=== PATIENT | male | born 1950 | race Caucasian/White ===

== ENCOUNTER 2017-03-20 09:23 | Inpatient (IN) | payer MEDICARE, BC ==
[~2017-03-20 09:23] MED LIST: Acetaminophen/oxyCODONE 325-5 MG Tab PO PRN; Bisacodyl 5 MG Tab PO PRN; Cyclobenzaprine 10 MG Tab PO PRN; Ketorolac 15 MG/ML SDV IVPUSH PRN; Lactated Ringers 1,000 ML IV SCH; Lidocaine 1%/Sod Bicarbonate in NS 8.4% 1 ML Syringe IV PRN; Magnesium Hydroxide 400 MG/5 ML Susp 30 ML Cup PO PRN; Morphine 2 MG/ML Syringe IVPUSH PRN; Morphine 8 MG, EPINEPHrine 0.3 MG, Cefuroxime 750 MG, Ketorolac 30 MG, Sodium Chloride ... ONE; Naloxone 0.4 MG/ML SDV IVPUSH PRN; Ondansetron 4 MG/2 ML SDV IVPUSH PRN; Sennosides 8.6 MG Tab PO PRN; Sodium Chloride 0.9% 10 ML Syringe FLUSH PRN; diphenhydrAMINE 50 MG/ML SDV IVPUSH PRN; oxyCODONE 5 MG Tab PO PRN
[2017-03-20] MEDS ORDERED: ceFAZolin 1 GM Vial ONE ×2 (10:09→10:34)
[2017-03-20] MEDS ORDERED: fentaNYL 100 MCG/2 ML SDV ONE (10:10)
[2017-03-20] MEDS ORDERED: Propofol 200 MG/20 ML SDV ONE (10:10)
[2017-03-20] MEDS ORDERED: Midazolam 1 MG/ML 2 ML SDV ONE (10:10)
--- NOTE | 2017-03-20 10:15 | PCM.PREANE ---
Preanesthetic Assessment - Anesthesia/Transfusion/Family Hx Anesthesia History: Prior Anesthesia Without Reaction Family History of Anesthesia Reaction: No Transfusion History: No Prior Transfusion(s) - Review of Systems General: No Symptoms Pulmonary: No Symptoms Cardiovascular: No Symptoms Gastrointestinal: No Symptoms Neurological: No Symptoms Other: Reports: Diabetes (check this AM @ 0730 was 190), Thyroid Problems ( hypothyroid) - Physical Assessment NPO Status Date: 03/19/17 NPO Status Time: 00:00 Pulse: 79 O2 Sat by Pulse Oximetry: 99 Respiratory Rate: 18 Blood Pressure: 146/70 Temperature: 37.2 C Vital Signs: Last Vital Signs Temp 37.2 C 03/20/17 09:30 Pulse 79 03/20/17 09:30 Resp 18 03/20/17 09:30 BP 146/70 H 03/20/17 09:30 Pulse Ox 99 03/20/17 09:30 Height: 1.83 m Weight: 93.259 kg ASA Class: 3 Mental Status: Alert & Oriented x3 Dentition: Reports: Dentures (top), Missing Tooth/Teeth, Caries Thyro-Mental Finger Breadths: 3 Mouth Opening Finger Breadths: 3 ROM/Head Extension: Full Lungs: Clear to Auscultation, Normal Respiratory Effort Cardiovascular: Regular Rate, Regular Rhythm, No Murmurs - Lab Values: Laboratory Last Values MRSA (PCR) Negative 03/07/17 14:38 - Imaging/EKG Impressions: On chart Sinus Rhythm - Allergies Allergies/Adverse Reactions: Allergies Allergy/AdvReac Type Severity Reaction Status Date / Time No Known Allergies Allergy Verified 01/08/16 07:21 - Anesthesia Plan Pre-Op Medication Ordered: Beta Peter Beta Peter: Metoprolol Med Last Dose Date: 03/20/17 Med Last Dose Time: 07:30 - Acknowledgements Anesthesia Type Planned: Spinal Pt an Appropriate Candidate for the Planned Anesthesia: Yes Alternatives and Risks of Anesthesia Discussed w Pt/Guardian: Yes Pt/Guardian Understands and Agrees with Anesthesia Plan: Yes PreAnesthesia Questionnaire HEENT History: Reports: Impaired Vision Other HEENT History: has upper denture, wears glasses Cardiovascular History: Reports: CAD, High Cholesterol, Hypertension, MS, Stents Respiratory History: Reports: None Gastrointestinal History: Reports: None Genitourinary History: Reports: None 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 Neurological History: Reports: None Psychiatric History: Reports: None Endocrine/Metabolic History: Reports: Diabetes, Type II Hematologic History: Reports: None Immunologic History: Reports: None Oncologic (Cancer) History: Reports: None Dermatologic History: Reports: None - Past Surgical History Head Surgeries/Procedures: Reports: None Cardiovascular Surgical History: Reports: None Respiratory Surgical History: Reports: None GI Surgical History: Reports: Appendectomy, Cholecystectomy Female Surgical History: Reports: None Male Surgical History: Reports: None Endocrine Surgical History: Reports: None Neurological Surgical History: Reports: None Musculoskeletal Surgical History: Reports: Arthroscopic Knee Dermatological Surgical History: Reports: None - SUBSTANCE USE Smoking Status *Q: Former Smoker Tobacco Use Within Last Twelve Months: No Second Hand Smoke Exposure: No Days Per Week of Alcohol Use: 0 Number of Drinks Per Day: 0 Total Drinks Per Week: 0 Recreational Drug Use History: No - HOME MEDS Home Medications: Home Meds Aspirin 325 mg PO DAILY 03/17/17 [History] Hydrochlorothiazide 12.5 mg PO DAILY 03/17/17 [History] Levothyroxine 125 mcg PO DAILY 03/17/17 [History] Metoprolol Succinate 25 mg PO DAILY 03/17/17 [History] Nitroglycerin [Nitrostat] 0.4 mg SL Q5M PRN 03/17/17 [History] Rosuvastatin Calcium 10 mg PO MOWEFR 03/17/17 [History] Valsartan [Valsartan] 160 mg PO DAILY 03/17/17 [History] amLODIPine [Norvasc] 10 mg PO DAILY 03/17/17 [History] glipiZIDE [Glucotrol] 10 mg PO DAILY 03/17/17 [History] metFORMIN HCl [Metformin HCl ER] 100 mg PO BID 03/17/17 [History] - CURRENT (IN HOUSE) MEDS Current Meds: Current Medications Aspirin (Ecotrin) 325 mg PO BID [facility] Bisacodyl (Dulcolax) 5 mg PO DAILY PRN PRN Reason: Constipation Cyclobenzaprine HCl (Flexeril) 10 mg PO TID PRN PRN Reason: Spasms Diphenhydramine HCl (Benadryl) 25 mg IVPUSH Q4H PRN PRN Reason: Nausea Docusate Sodium (Colace) 100 mg PO BID [facility] Famotidine (Pepcid) 20 mg PO Q12H [facility] Lactated Ringer's (Ringers, Lactated) 1,000 mls @ 125 mls/hr IV ASDIRECTED [facility] Cefazolin Sodium/Dextrose 2 gm (/ Premix) 50 mls @ 100 mls/hr IV Q8H [facility] Stop: 03/21/17 10:29 Ketorolac Tromethamine (Toradol) 15 mg IVPUSH Q8H PRN PRN Reason: Pain Lidocaine/Sodium Bicarbonate (Buffered Lidocaine 1% In Ns 8.4%) 0.25 ml IV ONETIME PRN PRN Reason: Prior to IV Start Magnesium Hydroxide (Milk Of Magnesia) 30 ml PO BID PRN PRN Reason: Constipation Morphine Sulfate (Morphine) 2 mg IVPUSH Q2H PRN PRN Reason: Breakthrough Pain Naloxone HCl (Narcan) 0.1 mg IVPUSH Q5M PRN PRN Reason: Oversedation Ondansetron HCl (Zofran) 4 mg IVPUSH Q6H PRN PRN Reason: Nausea/Vomiting Oxycodone HCl (Oxycodone) 5 mg PO Q6H PRN PRN Reason: Pain Oxycodone/Acetaminophen (Percocet 325-5 Mg) 1 - 2 tab PO Q4H PRN PRN Reason: Pain Senna (Senna) 8.6 mg PO BID PRN PRN Reason: Constipation Sodium Chloride (Saline Flush) 10 ml FLUSH ASDIRECTED PRN PRN Reason: Keep Vein Open Discontinued Medications Cefazolin Sodium (Ancef) Confirm Administered Dose 2 gm .ROUTE .STK-MED ONE Stop: 03/20/17 10:10 Morphine Sulfate 8 mg/Epinephrine HCl 0.3 mg/Cefuroxime Sodium 750 mg/Ketorolac Tromethamine 30 mg/Sodium Chloride 27.9 ml 0 mg .XX ONETIME ONE Stop: 03/20/17 06:42 Fentanyl (Sublimaze) Confirm Administered Dose 100 mcg .ROUTE .STK-MED ONE Stop: 03/20/17 10:11 Midazolam HCl (Versed 1 Mg/Ml) Confirm Administered Dose 2 mg .ROUTE .STK-MED ONE Stop: 03/20/17 10:11 Propofol (Diprivan 20 Ml) Confirm Administered Dose 400 mg .ROUTE .STK-MED ONE Stop: 03/20/17 10:11
[2017-03-20] MEDS ORDERED: Iodine/Sodium Iodide 2% Tincture 30 ML Bottle ONE (10:34)
[2017-03-20] MEDS ORDERED: Vancomycin 1 GM SDV ONE (10:34)
[2017-03-20] MEDS ORDERED: Bupivacaine 0.25% 30 ML SDV ONE (10:35)
[2017-03-20] MEDS ORDERED: Morphine PF 10 MG/10 ML SDV ONE (11:05)
[2017-03-20] MEDS ORDERED: Phenylephrine/Normal Saline 100 MCG/ML 10 ML Syringe ONE (12:28)
[2017-03-20] MEDS ORDERED: Lactated Ringers 1,000 ML ONE ×2 (13:00)
[2017-03-20] MEDS ORDERED: ePHEDrine 50 MG/ML SDV ONE (13:01)
[2017-03-20] MEDS ORDERED: Nitroglycerin 0.4 MG Tab.SL SL PRN (13:17)
--- NOTE | 2017-03-20 13:25 | PCM.POSTAN ---
POST ANESTHESIA ASSESSMENT - MENTAL STATUS Mental Status: Alert, Oriented - VITAL SIGNS Pulse Rate: 73 SaO2: 100 Resp Rate: 16 Blood Pressure: 98/59 Temperature: 98.1 C - RESPIRATORY Respiratory Status: Respiratory Rate WNL, Airway Patent, O2 Saturation Stable, Supplemental Oxygen - CARDIOVASCULAR CV Status: Pulse Rate WNL, Blood Pressure Stable - GASTROINTESTINAL GI Status: No Symptoms - PAIN Pain Score: 0 - POST OP HYDRATION Hydration Status: Adequate & Stable
[2017-03-20] MEDS ORDERED: HYDROmorphone 0.5 MG/0.5 ML Syringe IVPUSH PRN (13:26)
[2017-03-20] MEDS ORDERED: fentaNYL 100 MCG/2 ML SDV IVPUSH PRN (13:26)
[2017-03-20] MEDS ORDERED: Ondansetron 4 MG/2 ML SDV IVPUSH PRN (13:26)
[2017-03-20] MEDS ORDERED: Rosuvastatin 10 MG Tab PO SCH (13:30)
--- NOTE | 2017-03-20 17:26 | PCM.CONS ---
H&P History of Present Illness - General Date of Service: 03/20/17 Admit Problem/Dx: Admission Diagnosis/Problem Admission Diagnosis/Problem Osteoarthritis of knee Source of Information: Patient, Old Records, Provider, RN, Other (Surgical notes ) History Limitations: Reports: No Limitations - History of Present Illness Initial Comments - Free Text/Narative: Clay Coronado is a 66 yo male patient of Dr. Zhu who is post-operative day 0 of cancels left TKA. Once surgical incision was made, bone was noted to be black in color. As a result, left knee bone marrow biopsy, cultures and specimen were obtained. Hospital medicine was consulted for post-operative medical care. At this time he is resting comfortably in bed. Pain is controlled. He denies any chest pain, shortness of breath, palpitations, nausea , or vomiting. He carries a history of: HLD, hypothyroidism, CAD, HTN, AR with stent placement, and type II DM. He had a previous DVT with hip surgery. He is a former smoker. He is a full code. Has primary care provider is Dr. Lin at [facility]. Left Knee Pain Score (Numeric/FACES): 0 - Related Data Allergies/Adverse Reactions: Allergies Allergy/AdvReac Type Severity Reaction Status Date / Time No Known Allergies Allergy Verified 03/20/17 10:13 Home Medications: Home Meds Aspirin 325 mg PO DAILY 03/17/17 [History] Hydrochlorothiazide 12.5 mg PO DAILY 03/17/17 [History] Levothyroxine 125 mcg PO DAILY 03/17/17 [History] Metoprolol Succinate 25 mg PO DAILY 03/17/17 [History] Nitroglycerin [Nitrostat] 0.4 mg SL Q5M PRN 03/17/17 [History] Rosuvastatin Calcium 10 mg PO MOWEFR 03/17/17 [History] amLODIPine [Norvasc] 10 mg PO DAILY 03/17/17 [History] glipiZIDE [Glucotrol] 10 mg PO DAILY 03/17/17 [History] metFORMIN HCl [Metformin HCl ER] 100 mg PO BID 03/17/17 [History] Past Medical History HEENT History: Reports: Impaired Vision Other HEENT History: has upper denture, wears glasses Cardiovascular History: Reports: CAD, High Cholesterol, Hypertension, AR, Stents Respiratory History: Reports: None Gastrointestinal History: Reports: None Genitourinary History: Reports: None 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 Musculoskeletal History: Reports: Arthritis Neurological History: Reports: None Psychiatric History: Reports: None Endocrine/Metabolic History: Reports: Diabetes, Type II, Hypothyroidism Hematologic History: Reports: None Immunologic History: Reports: None Oncologic (Cancer) History: Reports: None Dermatologic History: Reports: None - Infectious Disease History Infectious Disease History: Reports: None - Past Surgical History Head Surgeries/Procedures: Reports: None HEENT Surgical History: Reports: None Cardiovascular Surgical History: Reports: Carotid Stents Respiratory Surgical History: Reports: None GI Surgical History: Reports: Appendectomy, Cholecystectomy Male Surgical History: Reports: None Endocrine Surgical History: Reports: None Neurological Surgical History: Reports: None Musculoskeletal Surgical History: Reports: Arthroscopic Knee Dermatological Surgical History: Reports: None Social & Family History - Family History Family Medical History: Noncontributory - Tobacco Use Smoking Status *Q: Former Smoker Years of Tobacco use: 15 Used Tobacco, but Quit: Yes Month Tobacco Last Used: quit 30 years ago Second Hand Smoke Exposure: No - Caffeine Use Caffeine Use: Reports: Coffee - Alcohol Use Days Per Week of Alcohol Use: 0 Number of Drinks Per Day: 0 Total Drinks Per Week: 0 - Recreational Drug Use Recreational Drug Use: No H&P Review of Systems - Review of Systems: Review Of Systems: See Below General: Reports: No Symptoms. Denies: Fever, Chills, Malaise, Weakness, Fatigue HEENT: Reports: No Symptoms. Denies: Ear Pain, Eye Pain, Sinus Congestion, Vertigo Pulmonary: Reports: No Symptoms. Denies: Shortness of Breath, Wheezing, Pleuritic Chest Pain Cardiovascular: Reports: No Symptoms. Denies: Chest Pain, Palpitations, Dyspnea on Exertion, Edema, Lightheadedness Gastrointestinal: Reports: No Symptoms. Denies: Abdominal Pain, Constipation, Diarrhea, Distension, Nausea, Vomiting Genitourinary: Reports: No Symptoms. Denies: Dysuria, Frequency, Burning, Pain , Urgency Musculoskeletal: Reports: No Symptoms. Denies: Neck Pain, Shoulder Pain, Arm Pain, Back Pain, Hand Pain, Leg Pain, Foot Pain, Joint Pain Skin: Reports: No Symptoms Psychiatric: Reports: No Symptoms Neurological: Reports: No Symptoms. Denies: Headache, Numbness, Tingling, Trouble Speaking, Weakness Hematologic/Lymphatic: Reports: No Symptoms Immunologic: Reports: No Symptoms Exam - Exam Exam: See Below - Vital Signs Vital Signs: Last Vital Signs Temp 98.1 F 03/20/17 14:45 Pulse 73 03/20/17 13:25 Resp 15 03/20/17 15:00 BP 134/68 03/20/17 15:00 Pulse Ox 99 03/20/17 15:00 Weight: 205 lb 9.6 oz - Exam Quality Assessment: Urinary Catheter, DVT Prophylaxis General: Alert, Oriented, Cooperative. No: Mild Distress HEENT: Conjunctiva Clear, EACs Clear, EOMI, Hearing Intact, Mucosa Moist & [place] , Nares Patent, Normal Nasal Septum, Posterior Pharynx Clear, PERRLA Neck: Supple, Trachea Midline. No: JVD, Thyromegaly Lungs: Clear to Auscultation, Normal Respiratory Effort Cardiovascular: Regular Rate, Regular Rhythm GI/Abdominal Exam: Normal Bowel Sounds, Soft, Non-Tender, No Organomegaly, No Distention, No Abnormal Bruit, No Mass, Pelvis Stable (Male) Exam: Deferred Rectal (Males) Exam: Deferred Back Exam: Normal Inspection, Full Range of Motion Extremities: No Pedal Edema, Normal Capillary Refill, Other (Matthew bandage in place on left leg. Bandages dry and intact. Cooling device place.) Peripheral Pulses: 2+: Radial (L), Radial (R), 3+: Posterior Tibial (L), Posterior Tibial (R), Dorsalis Pedis (L), Dorsalis Pedis (R) Skin: Warm, Dry, Intact Neurological: Cranial Nerves Intact (Grossly) Neuro Extensive - Mental Status: Alert, Oriented x3, Normal Mood/Affect, Normal Cognition, Memory Intact Neuro Extensive - Motor, Sensory, Reflexes: CN II-XII Intact (Grossly) Psychiatric: Alert, Normal Affect, Normal Mood - Patient Data Lab Results Last 24 hrs: Laboratory Results - last 24 hr 03/20/17 Range/Units 16:52 POC Glucose 167 H (80-115) mg/dL Consult PN Assessment/Plan POD#: 0 Procedures: Procedures CULTURE OTHR SPECIMN AEROBIC (12/06/13) HT MUSCLE IMAGE SPECT MULT (01/08/16) (1) Presence of surgical incision SNOMED Code(s): 848415296 Code(s): Z78.9 - OTHER SPECIFIED HEALTH STATUS Priority: High Current Visit: Yes (2) History of bone marrow biopsy SNOMED Code(s): 606107995 Code(s): Z98.890 - OTHER SPECIFIED POSTPROCEDURAL STATES Priority: High Current Visit: Yes (3) Osteoarthritis SNOMED Code(s): 619634747 Code(s): M19.90 - UNSPECIFIED OSTEOARTHRITIS, UNSPECIFIED SITE Priority: High Current Visit: Yes Qualifiers: Osteoarthritis location: knee Osteoarthritis type: primary Laterality: left Qualified Code(s): M17.12 - Unilateral primary osteoarthritis, left knee (4) Hypothyroidism SNOMED Code(s): 76770957 Code(s): E03.9 - HYPOTHYROIDISM, UNSPECIFIED Current Visit: No Qualifiers: Hypothyroidism type: unspecified Qualified Code(s): E03.9 - Hypothyroidism , unspecified (5) Type 2 diabetes mellitus SNOMED Code(s): 64211359 Code(s): E11.9 - TYPE 2 DIABETES MELLITUS WITHOUT COMPLICATIONS Priority: Medium Current Visit: Yes Qualifiers: Diabetes mellitus complication status: with unspecified complications Diabetes mellitus skilled nursing insulin use: without buttermaker helper use Qualified Code( s): E11.8 - Type 2 diabetes mellitus with unspecified complications (6) HLD (hyperlipidemia) SNOMED Code(s): 36864679 Code(s): E78.5 - HYPERLIPIDEMIA, UNSPECIFIED Priority: Low Current Visit : No Qualifiers: Hyperlipidemia type: unspecified Qualified Code(s): E78.5 - Hyperlipidemia , unspecified (7) HTN (hypertension) SNOMED Code(s): 13574829 Code(s): I10 - ESSENTIAL (PRIMARY) HYPERTENSION Priority: Low Current Visit: No Qualifiers: Hypertension type: unspecified Qualified Code(s): I10 - Essential (primary ) hypertension (8) 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 -Six (6) inch incision present in patients left knee -Bone marrow biopsy, cultures, and specimen were obtained during surgery -DVT prophylaxis and pain management per primary care team -PT/OT -IS/RT -Monitor oxygen saturation -Titrate oxygen as needed -Vital signs stable -Pre-operative Hgb was 13.8 Osteoarthritis of left knee -Pain management per primary care team Chronic: Hypothyroidism CAD - stable AR with stent placement - stable HLD HTN - stable Type II DM - A1C 6.0; Blood glucose checks as ordered. Continue home meds. Sliding scale insulin PRN. Plan: SW/CM for discharge planning GI prophylaxis Home medications as indicated Other orders as listed above Routine AM labs He is a full code. His PCP is Dr. Lin at [facility] here in [place] Thank you for allowing us to participate in the care of this patient!! Requesting Provider: Dr. Zhu Date Consult Requested: 03/20/17 Reason for Consult: Post-operative medical management Patient History Reviewed: Yes Admission H&P Reviewed: Yes
[2017-03-20] MEDS: ceFAZolin 2 GM in Premix Bag 1 BAG IV SCH (17:41)
[2017-03-20] MEDS ORDERED: 50% Dextrose in Water 50 ML Syringe IVPUSH PRN (17:41)
[2017-03-20] MEDS: metFORMIN 500 MG Tab PO SCH (21:27)
[2017-03-20] MEDS: Famotidine 20 MG Tab PO SCH (21:27)
[2017-03-20] MEDS: Docusate Sodium 100 MG Cap PO SCH (21:27)
[2017-03-20] MEDS: Insulin Aspart 100 Units/ML 3 ML Pen SUBCUT SCH (22:56)
[2017-03-21] MEDS: ceFAZolin 2 GM in Premix Bag 1 BAG IV SCH ×2 (02:04→10:42)
--- NOTE | 2017-03-21 08:11 | PCM48HPAN ---
Post Anesthesia Note - EVALUATION WITHIN 48HRS OF ANESTHETIC Vital Signs in Normal Range: Yes Patient Participated in Evaluation: Yes Respiratory Function Stable: Yes Airway Patent: Yes Cardiovascular Function Stable: Yes Hydration Status Stable: Yes Pain Control Satisfactory: Yes Nausea and Vomiting Control Satisfactory: Yes Mental Status Recovered: Yes
[2017-03-21] MEDS: Insulin Aspart 100 Units/ML 3 ML Pen SUBCUT SCH ×2 (08:55→11:53)
[2017-03-21] MEDS: Docusate Sodium 100 MG Cap PO SCH (08:56)
[2017-03-21] MEDS: Famotidine 20 MG Tab PO SCH (08:57)
[2017-03-21] MEDS: metFORMIN 500 MG Tab PO SCH (08:57)
[2017-03-21] MEDS ORDERED: Metoprolol Succinate 25 MG Tab.ER PO SCH (09:00)
[2017-03-21] MEDS ORDERED: Levothyroxine 125 MCG Tab PO SCH (09:00)
[2017-03-21] MEDS ORDERED: amLODIPine 10 MG Tab PO SCH (09:00)
[2017-03-21] MEDS ORDERED: Aspirin 325 MG Tab.EC PO SCH (09:00)
[2017-03-21] MEDS ORDERED: Hydrochlorothiazide 12.5 MG Cap PO SCH (09:00)
--- NOTE | 2017-03-21 10:24 | PCM.CONSN ---
- General Info Date of Service: 03/21/17 Admission Dx/Problem (Free Text): Admission Diagnosis/Problem Admission Diagnosis/Problem Osteoarthritis of knee Clay is a 66yo male scheduled for TKA yesterday with Dr. Zhu. During surgery was found to have discolored, black bone. Biopsies were obtained and no hardware was put in. He has worked with therapies today, did very well. Pain is minimal and controlled. He is voiding, appetite is good. Plans for DC today with follow up with Ortho and PCP. Functional Status: Reports: Pain Controlled, Tolerating Diet, Ambulating, Urinating, Incentive Spirometry. Denies: New Symptoms - Review of Systems General: Reports: No Symptoms HEENT: Reports: No Symptoms Pulmonary: Reports: No Symptoms Cardiovascular: Reports: No Symptoms Gastrointestinal: Reports: No Symptoms Genitourinary: Reports: No Symptoms Musculoskeletal: Reports: Leg Pain (minimal) Skin: Reports: No Symptoms Neurological: Reports: No Symptoms Psychiatric: Reports: No Symptoms - Patient Data Vitals - Most Recent: Last Vital Signs Temp 98.2 F 03/21/17 04:00 Pulse 76 03/21/17 08:56 Resp 03/21/17 07:00 BP 139/69 03/21/17 08:57 Pulse Ox 96 03/21/17 04:00 Weight - Most Recent: 211 lb 11.2 oz I&O - Last 24 Hours: Intake & Output 03/20/17 03/21/17 03/21/17 22:59 06:59 14:59 Intake Total 930 1150 Output Total 200 300 Balance 730 850 Lab Results Last 24 Hours: Laboratory Results - last 24 hr 03/20/17 03/20/17 03/21/17 Range/Units 16:52 22:19 05:40 WBC 5.53 (4.23-9.07) K/mm3 RBC 4.03 L (4.63-6.08) M/mm3 Hgb 12.0 L (13.7-17.5) gm/L Hct 35.1 L (40.1-51.0) % MCV 87.1 (79.0-92.2) fl MCH 29.8 (25.7-32.2) pg MCHC 34.2 (32.2-35.5) g/dl RDW Std Deviation 37.6 (35.1-43.9) fL Plt Count 138 L (163-337) K/mm3 MPV 11.7 (9.4-12.3) fl Sodium (136-145) mEq/L Potassium (3.5-5.1) mEq/L Chloride (98-107) mEq/L Carbon Dioxide (21-32) mEq/L Anion Gap (5-15) BUN (7-18) mg/dL Creatinine (0.7-1.3) mg/dL Est Cr Clr Drug Dosing mL/min Estimated GFR (MDRD) (>60) mL/min BUN/Creatinine Ratio (14-18) Glucose (80-115) mg/dL POC Glucose 167 H 159 H (80-115) mg/dL Calcium (8.5-10.1) mg/dL Total Bilirubin (0.2-1.0) mg/dL AST (15-37) U/L ALT (16-63) U/L Alkaline Phosphatase (46-116) U/L Total Protein (6.4-8.2) g/dl Albumin (3.4-5.0) g/dl Globulin gm/dL Albumin/Globulin Ratio (1-2) 03/21/17 03/21/17 Range/Units 05:40 06:30 WBC (4.23-9.07) K/mm3 RBC (4.63-6.08) M/mm3 Hgb (13.7-17.5) gm/L Hct (40.1-51.0) % MCV (79.0-92.2) fl MCH (25.7-32.2) pg MCHC (32.2-35.5) g/dl RDW Std Deviation (35.1-43.9) fL Plt Count (163-337) K/mm3 MPV (9.4-12.3) fl Sodium 135 L (136-145) mEq/L Potassium 4.3 (3.5-5.1) mEq/L Chloride 102 (98-107) mEq/L Carbon Dioxide 24 (21-32) mEq/L Anion Gap 13.3 (5-15) BUN 23 H (7-18) mg/dL Creatinine 1.4 H (0.7-1.3) mg/dL Est Cr Clr Drug Dosing 56.97 mL/min Estimated GFR (MDRD) 51 (>60) mL/min BUN/Creatinine Ratio 16.4 (14-18) Glucose 182 H (80-115) mg/dL POC Glucose 173 H (80-115) mg/dL Calcium 8.6 (8.5-10.1) mg/dL Total Bilirubin 0.6 (0.2-1.0) mg/dL AST 16 (15-37) U/L ALT 19 (16-63) U/L Alkaline Phosphatase 63 (46-116) U/L Total Protein 5.8 L (6.4-8.2) g/dl Albumin 3.2 L (3.4-5.0) g/dl Globulin 2.6 gm/dL Albumin/Globulin Ratio 1.2 (1-2) Andrew Results Last 24 Hours: Microbiology 03/20/17 12:44 Gram Stain - Final Other - Knee, Left Med Orders - Current: Current Medications Amlodipine Besylate (Norvasc) 10 mg PO DAILY [facility] Last Admin: 03/21/17 08:57 Dose: 10 mg Aspirin (Ecotrin) 325 mg PO BID [facility] Last Admin: 03/21/17 08:56 Dose: 325 mg Bisacodyl (Dulcolax) 5 mg PO DAILY PRN PRN Reason: Constipation Cyclobenzaprine HCl (Flexeril) 10 mg PO TID PRN PRN Reason: Spasms Dextrose/Water (Dextrose 50% In Water) 50 ml IVPUSH ASDIRECTED PRN PRN Reason: Hypoglycemia Diphenhydramine HCl (Benadryl) 25 mg IVPUSH Q4H PRN PRN Reason: Nausea Docusate Sodium (Colace) 100 mg PO BID [facility] Last Admin: 03/21/17 08:56 Dose: 100 mg Famotidine (Pepcid) 20 mg PO Q12H [facility] Last Admin: 03/21/17 08:57 Dose: 20 mg Glipizide (Glucotrol) 10 mg PO DAILY [facility] Last Admin: 03/21/17 08:56 Dose: 10 mg Hydrochlorothiazide (Hydrochlorothiazide) 12.5 mg PO DAILY [facility] Last Admin: 03/21/17 08:56 Dose: 12.5 mg Cefazolin Sodium/Dextrose 2 gm (/ Premix) 50 mls @ 100 mls/hr IV Q8H [facility] Stop: 03/21/17 10:29 Last Admin: 03/21/17 02:04 Dose: 100 mls/hr Insulin Aspart (Novolog) 0 unit SUBCUT QIDACANDBED [facility] PRN Reason: Protocol Last Admin: 03/21/17 08:55 Dose: 1 units Ketorolac Tromethamine (Toradol) 15 mg IVPUSH Q8H PRN PRN Reason: Pain Last Admin: 03/21/17 05:13 Dose: 15 mg Levothyroxine Sodium (Levothyroxine) 125 mcg PO DAILY [facility] Last Admin: 03/21/17 08:57 Dose: 125 mcg Magnesium Hydroxide (Milk Of Magnesia) 30 ml PO BID PRN PRN Reason: Constipation Metformin HCl (Glucophage) 1,000 mg PO BID [facility] Last Admin: 03/21/17 08:57 Dose: 1,000 mg Metoprolol Succinate (Toprol Xl) 25 mg PO DAILY [facility] Last Admin: 03/21/17 08:56 Dose: 25 mg Morphine Sulfate (Morphine) 2 mg IVPUSH Q2H PRN PRN Reason: Breakthrough Pain Naloxone HCl (Narcan) 0.1 mg IVPUSH Q5M PRN PRN Reason: Oversedation Nitroglycerin (Nitrostat) 0.4 mg SL Q5M PRN PRN Reason: Chest Pain Ondansetron HCl (Zofran) 4 mg IVPUSH Q6H PRN PRN Reason: Nausea/Vomiting Oxycodone/Acetaminophen (Percocet 325-5 Mg) 1 - 2 tab PO Q4H PRN PRN Reason: Pain Rosuvastatin Calcium (Crestor) 10 mg PO MOWEFR [facility] Last Admin: 03/20/17 17:41 Dose: 10 mg Senna (Senna) 8.6 mg PO BID PRN PRN Reason: Constipation Sodium Chloride (Saline Flush) 10 ml FLUSH ASDIRECTED PRN PRN Reason: Keep Vein Open Discontinued Medications Bupivacaine HCl (Marcaine 0.25%) Confirm Administered Dose 30 ml .ROUTE .STK- MED ONE Stop: 03/20/17 10:36 Last Admin: 03/20/17 12:38 Dose: 30 ml Cefazolin Sodium (Ancef) Confirm Administered Dose 2 gm .ROUTE .STK-MED ONE Stop: 03/20/17 10:10 Last Admin: 03/20/17 12:31 Dose: 2 gm Cefazolin Sodium (Ancef) Confirm Administered Dose 2 gm .ROUTE .STK-MED ONE Stop: 03/20/17 10:35 Morphine Sulfate 8 mg/Epinephrine HCl 0.3 mg/Cefuroxime Sodium 750 mg/Ketorolac Tromethamine 30 mg/Sodium Chloride 27.9 ml 0 mg .XX ONETIME ONE Stop: 03/20/17 06:42 Last Admin: 03/20/17 12:37 Dose: 788.3 mg Ephedrine Sulfate (Ephedrine Sulfate) Confirm Administered Dose 50 mg .ROUTE .STK-MED ONE Stop: 03/20/17 13:02 Fentanyl (Sublimaze) Confirm Administered Dose 100 mcg .ROUTE .STK-MED ONE Stop: 03/20/17 10:11 Fentanyl (Sublimaze) 50 mcg IVPUSH Q5M PRN PRN Reason: pain Stop: 03/20/17 18:00 Hydromorphone HCl (Dilaudid) 0.5 mg IVPUSH Q15M PRN PRN Reason: Pain (severe 7-10) Stop: 03/20/17 18:00 Lactated Ringer's (Ringers, Lactated) 1,000 mls @ 125 mls/hr IV ASDIRECTED [facility] Last Admin: 03/20/17 09:50 Dose: 125 mls/hr Lactated Ringer's (Ringers, Lactated) Confirm Administered Dose 1,000 mls @ as directed .ROUTE .STK-MED ONE Stop: 03/20/17 13:01 Lactated Ringer's (Ringers, Lactated) Confirm Administered Dose 1,000 mls @ as directed .ROUTE .STK-MED ONE Stop: 03/20/17 13:01 Iodine (Iodine 2% Mild Tincture) Confirm Administered Dose 30 ml .ROUTE .STK- MED ONE Stop: 03/20/17 10:35 Last Admin: 03/20/17 12:26 Dose: 18 ml Lidocaine/Sodium Bicarbonate (Buffered Lidocaine 1% In Ns 8.4%) 0.25 ml IV ONETIME PRN PRN Reason: Prior to IV Start Last Admin: 03/20/17 09:54 Dose: 0.25 ml Midazolam HCl (Versed 1 Mg/Ml) Confirm Administered Dose 2 mg .ROUTE .STK-MED ONE Stop: 03/20/17 10:11 Morphine Sulfate (Duramorph Pf) 10 mg .ROUTE .STK-MED ONE Stop: 03/20/17 11:06 Ondansetron HCl (Zofran) 4 mg IVPUSH ONETIME PRN PRN Reason: Nausea/Vomiting Stop: 03/20/17 18:00 Oxycodone HCl (Oxycodone) 5 mg PO Q6H PRN PRN Reason: Pain Phenylephrine HCl (Phenylephrine In Ns 100 Mcg/Ml) Confirm Administered Dose 1 mg .ROUTE .STK-MED ONE Stop: 03/20/17 12:29 Propofol (Diprivan 20 Ml) Confirm Administered Dose 400 mg .ROUTE .STK-MED ONE Stop: 03/20/17 10:11 Tranexamic Acid (Cyklokapron) Confirm Administered Dose 1,000 mg .ROUTE .STK- MED ONE Stop: 03/20/17 10:35 Last Admin: 03/20/17 12:40 Dose: 1,000 mg Vancomycin HCl (Vancomycin) Confirm Administered Dose 1 gm .ROUTE .STK-MED ONE Stop: 03/20/17 10:35 Last Admin: 03/20/17 12:39 Dose: 1 gm - Exam Quality Assessment: DVT Prophylaxis General: Alert, Oriented, Cooperative, No Acute Distress HEENT: Pupils Equal, EOMI, Mucous Membr. Moist/[place] Neck: Supple Lungs: Clear to Auscultation, Normal Respiratory Effort Cardiovascular: Regular Rate, Regular Rhythm GI/Abdominal Exam: Normal Bowel Sounds, Soft, Non-Tender (Male) Exam: Deferred Back Exam: Normal Inspection Extremities: Other (Teds bilat, ice to lt knee) Peripheral Pulses: 2+: Dorsalis Pedis (L), Dorsalis Pedis (R) Skin: Warm, Other (dark skin color, slight ashen appearance. ) Neurological: No New Focal Deficit Psy/Mental Status: Alert, Normal Affect, Normal Mood Consult PN Assessment/Plan POD#: 1 Procedures: Procedures CULTURE OTHR SPECIMN AEROBIC (12/06/13) HT MUSCLE IMAGE SPECT MULT (01/08/16) (1) Presence of surgical incision SNOMED Code(s): 327656068 Code(s): Z78.9 - OTHER SPECIFIED HEALTH STATUS Priority: High Current Visit: Yes (2) History of bone marrow biopsy SNOMED Code(s): 436551211 Code(s): Z98.890 - OTHER SPECIFIED POSTPROCEDURAL STATES Priority: High Current Visit: Yes (3) Osteoarthritis SNOMED Code(s): 774791580 Code(s): M19.90 - UNSPECIFIED OSTEOARTHRITIS, UNSPECIFIED SITE Priority: High Current Visit: Yes Qualifiers: Osteoarthritis location: knee Osteoarthritis type: primary Laterality: left Qualified Code(s): M17.12 - Unilateral primary osteoarthritis, left knee (4) 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 SNOMED Code(s): 53104442 Code(s): I25.10 - ATHSCL HEART DISEASE OF [place] CORONARY ARTERY W/O ANG PCTRS; I25.2 - OLD MYOCARDIAL INFARCTION Priority: Medium Current Visit: Yes (5) Type 2 diabetes mellitus SNOMED Code(s): 60672099 Code(s): E11.9 - TYPE 2 DIABETES MELLITUS WITHOUT COMPLICATIONS Priority: Medium Current Visit: Yes Qualifiers: Diabetes mellitus complication status: with unspecified complications 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: without intermodal 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 driver use Qualified Code( s): E11.8 - Type 2 diabetes mellitus with unspecified complications (6) HLD (hyperlipidemia) SNOMED Code(s): 35883013 Code(s): E78.5 - HYPERLIPIDEMIA, UNSPECIFIED Priority: Low Current Visit : No Qualifiers: Hyperlipidemia type: unspecified Qualified Code(s): E78.5 - Hyperlipidemia , unspecified (7) HTN (hypertension) SNOMED Code(s): 13896104 Code(s): I10 - ESSENTIAL (PRIMARY) HYPERTENSION Priority: Low Current Visit: No Qualifiers: Hypertension type: unspecified Qualified Code(s): I10 - Essential (primary ) hypertension (8) Hypothyroidism SNOMED Code(s): 02654145 Code(s): E03.9 - HYPOTHYROIDISM, UNSPECIFIED Priority: Low Current Visit : No Qualifiers: Hypothyroidism type: unspecified Qualified Code(s): E03.9 - Hypothyroidism , unspecified Problem List Initiated/Reviewed/Updated: Yes My Orders Last 24 Hours: My Active Orders 03/20/17 15:07 Patient Status [ADT] Routine Plan: I/P: S/P incision to left knee for planned TKA- TKA not completed due to bone abnormality "black bone". -Biopsy obtained in surgery per Dr. Zhu- awaiting results -Follow up with PCP to have further workup of black bone, ? minocycline use or other metabolic or metastatic process. -PT/OT- doing well and discharged from PT this morning -Pain management and DVT prophylax per Ortho Chronic: CAD/Hx AMI/stent- stable HTN- controlled HLD DM- A1C 6.0 Other: CM/SW for assist with DC planning- OK from medical/Hospitalist standpoint for DC home today GI prophylax Patient is Full Code status. Dr. Lin is PCP at [facility] in [place].
--- NOTE | 2017-03-23 16:05 | PCM.SURGPN ---
- General Info Date of Service: 03/21/17 POD#: 1 Functional Status: Reports: Pain Controlled, Tolerating Diet, Ambulating, Urinating, Incentive Spirometry - Review of Systems Musculoskeletal: Reports: Other (The pt reported his pain is controlled. He feels prepared for discharge to home.) - Patient Data Vitals - Most Recent: Last Vital Signs Temp 98.4 F 03/21/17 11:21 Pulse 74 03/21/17 11:21 Resp 16 03/21/17 14:00 BP 129/90 03/21/17 11:21 Pulse Ox 98 03/21/17 14:00 Weight - Most Recent: 211 lb 11.2 oz Andrew Results Last 24 Hrs: Microbiology 03/20/17 12:44 Gram Stain - Final Other - Knee, Left Anaerobic Culture - Preliminary NO GROWTH AFTER 2 DAYS Med Orders - Current: Current Medications Discontinued Medications Amlodipine Besylate (Norvasc) 10 mg PO DAILY [facility] Last Admin: 03/21/17 08:57 Dose: 10 mg Aspirin (Ecotrin) 325 mg PO BID [facility] Last Admin: 03/21/17 08:56 Dose: 325 mg Bisacodyl (Dulcolax) 5 mg PO DAILY PRN PRN Reason: Constipation Bupivacaine HCl (Marcaine 0.25%) Confirm Administered Dose 30 ml .ROUTE .STK- MED ONE Stop: 03/20/17 10:36 Last Admin: 03/20/17 12:38 Dose: 30 ml Cefazolin Sodium (Ancef) Confirm Administered Dose 2 gm .ROUTE .STK-MED ONE Stop: 03/20/17 10:10 Last Admin: 03/20/17 12:31 Dose: 2 gm Cefazolin Sodium (Ancef) Confirm Administered Dose 2 gm .ROUTE .STK-MED ONE Stop: 03/20/17 10:35 Morphine Sulfate 8 mg/Epinephrine HCl 0.3 mg/Cefuroxime Sodium 750 mg/Ketorolac Tromethamine 30 mg/Sodium Chloride 27.9 ml 0 mg .XX ONETIME ONE Stop: 03/20/17 06:42 Last Admin: 03/20/17 12:37 Dose: 788.3 mg Cyclobenzaprine HCl (Flexeril) 10 mg PO TID PRN PRN Reason: Spasms Dextrose/Water (Dextrose 50% In Water) 50 ml IVPUSH ASDIRECTED PRN PRN Reason: Hypoglycemia Diphenhydramine HCl (Benadryl) 25 mg IVPUSH Q4H PRN PRN Reason: Nausea Docusate Sodium (Colace) 100 mg PO BID [facility] Last Admin: 03/21/17 08:56 Dose: 100 mg Ephedrine Sulfate (Ephedrine Sulfate) Confirm Administered Dose 50 [address] .[address] [facility] Stop: 03/20/17 13:02 Famotidine (Pepcid) 20 mg PO Q12H [facility] Last Admin: 03/21/17 08:57 Dose: 20 mg Fentanyl (Sublimaze) Confirm Administered Dose [address] mcg [address] .[facility] Stop: 03/20/17 10:11 Fentanyl (Sublimaze) 50 mcg IVPUSH Q5M PRN PRN Reason: pain Stop: 03/20/17 18:00 Glipizide (Glucotrol) 10 mg PO DAILY [facility] Last Admin: 03/21/17 08:56 Dose: 10 mg Hydrochlorothiazide (Hydrochlorothiazide) 12.5 mg PO DAILY [facility] Last Admin: 03/21/17 08:56 Dose: 12.5 mg Hydromorphone HCl (Dilaudid) 0.5 mg IVPUSH Q15M PRN PRN Reason: Pain (severe 7-10) Stop: 03/20/17 18:00 Lactated Ringer's (Ringers, Lactated) 1,000 mls @ 125 mls/hr IV ASDIRECTED [facility] Last Admin: 03/20/17 09:50 Dose: 125 mls/hr Cefazolin Sodium/Dextrose 2 gm (/ Premix) 50 mls @ 100 mls/hr IV Q8H [facility] Stop: 03/21/17 10:29 Last Admin: 03/21/17 10:42 Dose: 100 mls/hr Lactated Ringer's (Ringers, Lactated) Confirm Administered Dose 1,000 mls @ as directed .ROUTE .[facility] Stop: 03/20/17 13:01 Lactated Ringer's (Ringers, Lactated) Confirm Administered Dose 1,000 mls @ as directed .ROUTE .[facility] Stop: 03/20/17 13:01 Insulin Aspart (Novolog) 0 unit SUBCUT QIDACANDBED [facility] PRN Reason: Protocol Last Admin: 03/21/17 11:53 Dose: Not Given Iodine (Iodine 2% Mild Tincture) Confirm Administered Dose 30 ml .ROUTE .STK- MED ONE Stop: 03/20/17 10:35 Last Admin: 03/20/17 12:26 Dose: 18 ml Ketorolac Tromethamine (Toradol) 15 mg IVPUSH Q8H PRN PRN Reason: Pain Last Admin: 03/21/17 05:13 Dose: 15 mg Levothyroxine Sodium (Levothyroxine) 125 mcg PO DAILY [facility] Last Admin: 03/21/17 08:57 Dose: 125 mcg Lidocaine/Sodium Bicarbonate (Buffered Lidocaine 1% In Ns 8.4%) 0.25 ml IV ONETIME PRN PRN Reason: Prior to IV Start Last Admin: 03/20/17 09:54 Dose: 0.25 ml Magnesium Hydroxide (Milk Of Magnesia) 30 ml PO BID PRN PRN Reason: Constipation Metformin HCl (Glucophage) 1,000 mg PO BID [facility] Last Admin: 03/21/17 08:57 Dose: 1,000 mg Metoprolol Succinate (Toprol Xl) 25 mg PO DAILY [facility] Last Admin: 03/21/17 08:56 Dose: 25 mg Midazolam HCl (Versed 1 Mg/Ml) Confirm Administered Dose 2 mg .ROUTE .STK-MED ONE Stop: 03/20/17 10:11 Morphine Sulfate (Morphine) 2 mg IVPUSH Q2H PRN PRN Reason: Breakthrough Pain Morphine Sulfate (Duramorph Pf) 10 mg .ROUTE .STK-MED ONE Stop: 03/20/17 11:06 Naloxone HCl (Narcan) 0.1 mg IVPUSH Q5M PRN PRN Reason: Oversedation Nitroglycerin (Nitrostat) 0.4 mg SL Q5M PRN PRN Reason: Chest Pain Ondansetron HCl (Zofran) 4 mg IVPUSH Q6H PRN PRN Reason: Nausea/Vomiting Ondansetron HCl (Zofran) 4 mg IVPUSH ONETIME PRN PRN Reason: Nausea/Vomiting Stop: 03/20/17 18:00 Oxycodone HCl (Oxycodone) 5 mg PO Q6H PRN PRN Reason: Pain Oxycodone/Acetaminophen (Percocet 325-5 Mg) 1 - 2 tab PO Q4H PRN PRN Reason: Pain Phenylephrine HCl (Phenylephrine In Ns 100 Mcg/Ml) Confirm Administered Dose 1 mg .ROUTE .STK-MED ONE Stop: 03/20/17 12:29 Propofol (Diprivan 20 Ml) Confirm Administered Dose 400 mg .ROUTE .STK-MED ONE Stop: 03/20/17 10:11 Rosuvastatin Calcium (Crestor) 10 mg PO MOWEFR [facility] Last Admin: 03/20/17 17:41 Dose: 10 mg Senna (Senna) 8.6 mg PO BID PRN PRN Reason: Constipation Sodium Chloride (Saline Flush) 10 ml FLUSH ASDIRECTED PRN PRN Reason: Keep Vein Open Tranexamic Acid (Cyklokapron) Confirm Administered Dose 1,000 mg .ROUTE .STK- MED ONE Stop: 03/20/17 10:35 Last Admin: 03/20/17 12:40 Dose: 1,000 mg Vancomycin HCl (Vancomycin) Confirm Administered Dose 1 gm .ROUTE .STK-MED ONE Stop: 03/20/17 10:35 Last Admin: 03/20/17 12:39 Dose: 1 gm - Exam Wound/Incisions: Dressing Dry and Intact General: Alert, Cooperative, No Acute Distress Lungs: Normal Respiratory Effort Extremities: Other (NVS intact for BLE. Carissa's negative. Independent SLR LLE. ) - Problem List Review Problem List Initiated/Reviewed/Updated: Yes - Assessment Assessment (Free Text/Narrative):: POD#1 - left femur biopsy for abnormal appearance of bone; TKA not completed due to abnormal appearance of bone - Plan Plan (Free Text/Narrative):: 1. Hgb 12.0 2. Discoloration of bone possibly due to longstanding use of minocycline. Biopsies pending. Cultures of bone pending. 3. ASA, frequent mobility, TEDs. 4. Discharge to home today with assistance of pt's sister. The pt will likely be able to schedule for TKA if no ominous signs noted with pathology and culture results. The pt's case was discussed with Dr. Zhu.
--- NOTE | 2017-03-23 16:09 | PCM.DCSUM1 ---
Discharge Summary - Hospital Course Brief History: Clay is a 66 yo male who was scheduled for left TKA with Dr. Zhu on 03-20-2017. TKA was not completed due to abnormal appearance of bone at femur, tibia, patella. Biopsies of the bone and bone marrow biopsy was completed and cultures were obtained. The pt tolerated the procedure well and was admitted to the Medical-Surgical Unit. Medical management was provided by the Hospitalist service. The pt's Hospital course was uneventful. The pt's Hgb on POD#1 was 12.0. On POD#1, 325mg ASA BID was initiated for VTE prophylaxis. SCDs and TEDs were also ordered. A Mepilex dressing was placed at the incision site at the time of surgery and remained clean and dry. The pt participated in P.T. and O.T. and progressed well. The pt was allowed to WBAT. On POD#1, the pt was deemed appropriate to discharge to home with his sister. - Discharge Data Discharge Date: 03/21/17 Discharge Disposition: Home, Self-Care 01 Condition: Good - Patient Summary/Data Consults: Consultations 03/20/17 06:41 Consult to Physician [CONS] Routine OT Evaluation and Treatment [CONS] Routine 03/20/17 06:45 PT Evaluation and Treatment [CONS] Routine - Patient Instructions Diet: Usual Diet as Tolerated Activity: Apply Ice, As Tolerated, Elevate Extremity, Full Weight Bearing Driving: Do Not Drive Showering/Bathing: May Shower Wound/Incision Care: Keep Operative Site/Wound Site Clean and Dry, Do NOT Change Dressing Notify Provider of: Fever, Increased Pain, Swelling and Redness, Drainage, Nausea and/or Vomiting Other/Special Instructions: Please get up and moving around every hour while awake. This helps to prevent blood clots. Please take 325mg aspirin twice daily - this also helps to prevent blood clots. The medication is being used for blood clot prevention and not for pain control, so please use the medication twice daily as directed. Please wear the COCO hose during the day and you may remove them at night. Please schedule for P.T. Complete the P.T. exercises and stretches that were instructed in the Hospital. Please use the pain medication and muscle relaxant as needed. The medication may cause drowsiness and/or constipation. You could use a stool softener like docusate sodium or Colace 100mg twice daily and/or a laxative like Miralax daily for constipation. Contact your primary care provider for further instructions if you are constipated. Please schedule an appointment with your primary care provider for 'routine post-op care'. Use the incentive spirometer often. Please place ice to the knee often. Please elevate the limb to decrease swelling. Keep the Mepilex dressing in place until follow-up. Please call [phone] with questions or concerns. - Discharge Plan Prescriptions/Med Rec: Acetaminophen/oxyCODONE [Percocet 325-5 MG] 1 - 2 tab PO Q6H PRN #40 tablet PRN Reason: Pain Aspirin [Ecotrin] 325 mg PO BID #20 tab.ec Docusate Sodium [Colace] 100 mg PO BID PRN #30 cap PRN Reason: Constipation Famotidine [Pepcid] 20 mg PO DAILY #30 tablet Home Medications: Home Meds Hydrochlorothiazide 12.5 mg PO DAILY 03/17/17 [History] Levothyroxine 125 mcg PO DAILY 03/17/17 [History] Metoprolol Succinate 25 mg PO DAILY 03/17/17 [History] Nitroglycerin [Nitrostat] 0.4 mg SL Q5M PRN 03/17/17 [History] Rosuvastatin Calcium 10 mg PO MOWEFR 03/17/17 [History] amLODIPine [Norvasc] 10 mg PO DAILY 03/17/17 [History] glipiZIDE [Glucotrol] 10 mg PO DAILY 03/17/17 [History] metFORMIN HCl [Metformin HCl ER] 100 mg PO BID 03/17/17 [History] Acetaminophen/oxyCODONE [Percocet 325-5 MG] 1 - 2 tab PO Q6H PRN #40 tablet [Rx] Aspirin [Ecotrin] 325 mg PO BID #20 tab.ec 03/21/17 [Rx] Docusate Sodium [Colace] 100 mg PO BID PRN #30 cap 03/21/17 [Rx] Famotidine [Pepcid] 20 mg PO DAILY #30 tablet 03/21/17 [Rx] Patient Handouts: Bone Marrow Aspiration and Bone Marrow Biopsy Referrals: Gilda Talley PA-C [Physician Family Educator] - (Please see Gilda Talley on Monday03/28/17 at 9:15 AM and on Monday04/04/17 at 9:15 AM.) - Patient Data Vitals - Most Recent: Last Vital Signs Temp 98.4 F 03/21/17 11:21 Pulse 74 03/21/17 11:21 Resp 16 03/21/17 14:00 BP 129/90 03/21/17 11:21 Pulse Ox 98 03/21/17 14:00 Weight - Most Recent: 211 lb 11.2 oz GATITO Results - Last 24 hrs: Microbiology 03/20/17 12:44 Gram Stain - Final Other - Knee, Left Anaerobic Culture - Preliminary NO GROWTH AFTER 3 DAYS Med Orders - Current: Current Medications Discontinued Medications Amlodipine Besylate (Norvasc) 10 mg PO DAILY [facility] Last Admin: 03/21/17 08:57 Dose: 10 mg Aspirin (Ecotrin) 325 mg PO BID [facility] Last Admin: 03/21/17 08:56 Dose: 325 mg Bisacodyl (Dulcolax) 5 mg PO DAILY PRN PRN Reason: Constipation Bupivacaine HCl (Marcaine 0.25%) Confirm Administered Dose 30 ml .ROUTE .STK- MED ONE Stop: 03/20/17 10:36 Last Admin: 03/20/17 12:38 Dose: 30 ml Cefazolin Sodium (Ancef) Confirm Administered Dose 2 gm .ROUTE .STK-MED ONE Stop: 03/20/17 10:10 Last Admin: 03/20/17 12:31 Dose: 2 gm Cefazolin Sodium (Ancef) Confirm Administered Dose 2 gm .ROUTE .STK-MED ONE Stop: 03/20/17 10:35 Morphine Sulfate 8 mg/Epinephrine HCl 0.3 mg/Cefuroxime Sodium 750 mg/Ketorolac Tromethamine 30 mg/Sodium Chloride 27.9 ml 0 mg .XX ONETIME ONE Stop: 03/20/17 06:42 Last Admin: 03/20/17 12:37 Dose: 788.3 mg Cyclobenzaprine HCl (Flexeril) 10 mg PO TID PRN PRN Reason: Spasms Dextrose/Water (Dextrose 50% In Water) 50 ml IVPUSH ASDIRECTED PRN PRN Reason: Hypoglycemia Diphenhydramine HCl (Benadryl) 25 mg IVPUSH Q4H PRN PRN Reason: Nausea Docusate Sodium (Colace) 100 mg PO BID [facility] Last Admin: 03/21/17 08:56 Dose: 100 mg Ephedrine Sulfate (Ephedrine Sulfate) Confirm Administered Dose 50 mg .ROUTE .[facility]-MED ONE Stop: 03/20/17 13:02 Famotidine (Pepcid) 20 mg PO Q12H [facility] Last Admin: 03/21/17 08:57 Dose: 20 mg Fentanyl (Sublimaze) Confirm Administered Dose 100 mcg .ROUTE .[facility] ONE Stop: 03/20/17 10:11 Fentanyl (Sublimaze) 50 mcg IVPUSH Q5M PRN PRN Reason: pain Stop: 03/20/17 18:00 Glipizide (Glucotrol) 10 mg PO DAILY [facility] Last Admin: 03/21/17 08:56 Dose: 10 mg Hydrochlorothiazide (Hydrochlorothiazide) 12.5 mg PO DAILY [facility] Last Admin: 03/21/17 08:56 Dose: 12.5 mg Hydromorphone HCl (Dilaudid) 0.5 mg IVPUSH Q15M PRN PRN Reason: Pain (severe 7-10) Stop: 03/20/17 18:00 Lactated Ringer's (Ringers, Lactated) 1,000 mls @ 125 mls/hr IV ASDIRECTED [facility] Last Admin: 03/20/17 09:50 Dose: 125 mls/hr Cefazolin Sodium/Dextrose 2 gm (/ Premix) 50 mls @ 100 mls/hr IV Q8H [facility] Stop: 03/21/17 10:29 Last Admin: 03/21/17 10:42 Dose: 100 mls/hr Lactated Ringer's (Ringers, Lactated) Confirm Administered Dose 1,000 mls @ as directed .ROUTE .[facility]-MED ONE Stop: 03/20/17 13:01 Lactated Ringer's (Ringers, Lactated) Confirm Administered Dose 1,000 mls @ as directed .ROUTE .[facility]-MED ONE Stop: 03/20/17 13:01 Insulin Aspart (Novolog) 0 unit SUBCUT QIDACANDBED [facility] PRN Reason: Protocol Last Admin: 03/21/17 11:53 Dose: Not Given Iodine (Iodine 2% Mild Tincture) Confirm Administered Dose 30 ml .ROUTE .STK- MED ONE Stop: 03/20/17 10:35 Last Admin: 03/20/17 12:26 Dose: 18 ml Ketorolac Tromethamine (Toradol) 15 mg IVPUSH Q8H PRN PRN Reason: Pain Last Admin: 03/21/17 05:13 Dose: 15 mg Levothyroxine Sodium (Levothyroxine) 125 mcg PO DAILY [facility] Last Admin: 03/21/17 08:57 Dose: 125 mcg Lidocaine/Sodium Bicarbonate (Buffered Lidocaine 1% In Ns 8.4%) 0.25 ml IV ONETIME PRN PRN Reason: Prior to IV Start Last Admin: 03/20/17 09:54 Dose: 0.25 ml Magnesium Hydroxide (Milk Of Magnesia) 30 ml PO BID PRN PRN Reason: Constipation Metformin HCl (Glucophage) 1,000 mg PO BID [facility] Last Admin: 03/21/17 08:57 Dose: 1,000 mg Metoprolol Succinate (Toprol Xl) 25 mg PO DAILY [facility] Last Admin: 03/21/17 08:56 Dose: 25 mg Midazolam HCl (Versed 1 Mg/Ml) Confirm Administered Dose 2 mg .ROUTE .STK-MED ONE Stop: 03/20/17 10:11 Morphine Sulfate (Morphine) 2 mg IVPUSH Q2H PRN PRN Reason: Breakthrough Pain Morphine Sulfate (Duramorph Pf) 10 mg .ROUTE .STK-MED ONE Stop: 03/20/17 11:06 Naloxone HCl (Narcan) 0.1 mg IVPUSH Q5M PRN PRN Reason: Oversedation Nitroglycerin (Nitrostat) 0.4 mg SL Q5M PRN PRN Reason: Chest Pain Ondansetron HCl (Zofran) 4 mg IVPUSH Q6H PRN PRN Reason: Nausea/Vomiting Ondansetron HCl (Zofran) 4 mg IVPUSH ONETIME PRN PRN Reason: Nausea/Vomiting Stop: 03/20/17 18:00 Oxycodone HCl (Oxycodone) 5 mg PO Q6H PRN PRN Reason: Pain Oxycodone/Acetaminophen (Percocet 325-5 Mg) 1 - 2 tab PO Q4H PRN PRN Reason: Pain Phenylephrine HCl (Phenylephrine In Ns 100 Mcg/Ml) Confirm Administered Dose 1 mg .ROUTE .STK-MED ONE Stop: 03/20/17 12:29 Propofol (Diprivan 20 Ml) Confirm Administered Dose 400 mg .ROUTE .STK-MED ONE Stop: 03/20/17 10:11 Rosuvastatin Calcium (Crestor) 10 mg PO MOWEFR [facility] Last Admin: 03/20/17 17:41 Dose: 10 mg Senna (Senna) 8.6 mg PO BID PRN PRN Reason: Constipation Sodium Chloride (Saline Flush) 10 ml FLUSH ASDIRECTED PRN PRN Reason: Keep Vein Open Tranexamic Acid (Cyklokapron) Confirm Administered Dose 1,000 mg .ROUTE .STK- MED ONE Stop: 03/20/17 10:35 Last Admin: 03/20/17 12:40 Dose: 1,000 mg Vancomycin HCl (Vancomycin) Confirm Administered Dose 1 gm .ROUTE .STK-MED ONE Stop: 03/20/17 10:35 Last Admin: 03/20/17 12:39 Dose: 1 gm *Q Meaningful Use (DIS) - VTE *Q VTE Criteria *Q: - Stroke *Q Stroke Criteria *Q: - AMI *Q AMI Criteria *Q:
--- NOTE | 2017-03-27 13:59 | PCM.OPNOTE ---
- General Post-Op/Procedure Note Date of Surgery/Procedure: 03/20/17 Operative Procedure(s): left knee bone debridement with core biopsy left distal femur Pre Op Diagnosis: left knee osteoarthrosis Post-Op Diagnosis: same with bone discoloration Anesthesia Technique: Local, MAC, Spinal Primary Surgeon: Subhash Zhu Anesthesia Provider: Betty West Buggy Man: Gilda Talley Buggy Man: Hyacinth Schaeffer EBAdalid in mLs: 25 Complications: None Condition: Good
--- NOTE | 2017-03-27 15:07 | OR ---
DATE OF OPERATION: 03/20/2017 SURGEON: Subhash Zhu MD OPERATION PERFORMED: Left knee bone debridement with core biopsy, left distal femur. PREOPERATIVE DIAGNOSIS: Left knee osteoarthrosis. POSTOPERATIVE DIAGNOSIS: Left knee osteoarthrosis with bone discoloration. ANESTHESIA: Local, MAC, and spinal. ANESTHESIA PROVIDER: Dr. Betty West. ASSISTANTS: Gilda Talley PA-C and Hyacinth Schaeffer LPN. ESTIMATED BLOOD LOSS: Less than 25 mL. COMPLICATIONS: None. CONDITION: Stable. DESCRIPTION OF PROCEDURE: The patient was identified in the preop holding area. Proper site was marked and identified by the surgeon. The patient was taken back to the operative theater where after adequate anesthesia, the patient's left lower extremity had a nonsterile tourniquet applied to the right knee and was then sterilely prepped and draped in the usual sterile fashion. OR time-out was performed. The patient received 2 g IV Ancef. The left lower extremity was then exsanguinated. Tourniquet was insufflated 250 mmHg. Standard medial parapatellar skin incision was made. A medial parapatellar arthrotomy was created. At this time, there was noted to be significant marked discoloration of the distal femur as well as the patella. On further examination after the medial parapatellar arthrotomy was completed, it was noted that all of the bone showed significant darkish brown and black discoloration throughout the knee. At this time, we did consult with the patient's history to make sure he did not have any history that would be suggestive of this, and looking at the history, the patient had no signs of being on any medication other than it showed that the patient had 1 tablet of minocycline for an undiagnosed issue. At this time, secondary to there being nothing per the health history that would make it to be like this, we decided that we would just do a biopsy. At this time, we did debride osteophytes off the patella and the distal femur, and a bone biopsy needle was placed through the distal femur for core biopsy. At this time, adequate saline was irrigated through the wound. A #2 barbed suture was used for closure of the medial parapatellar arthrotomy, 2-0 Vicryl was used subcutaneously, and Monocryl was used for the skin. The patient was placed in sterile soft dressing and sent to the PACU in stable condition. We will plan on awaiting the microbiology and pathology work. CECI /[id number]
== END 2017-03-21 14:37 | disposition home or self-care (01) | DRG 479 ==
LOC: JD.MS 09:23 → UNDOADMIN 09:23 → JD.MS 15:22
PROVIDERS: ADMIT Orthopaedic Surgery; ATTEND Orthopaedic Surgery
PROC: 0QBC0ZX Excision of Left Lower Femur, Open Approach, Diagnostic (ICD-10-PCS; principal; 2017-03-20)
DX: M17.12 Unilateral primary osteoarthritis, left knee (principal); E66.3 Overweight; Z68.28 Body mass index [BMI] 28.0-28.9, adult; E11.9 Type 2 diabetes mellitus without complications; I10 Essential (primary) hypertension; Z79.84 Long term (current) use of oral hypoglycemic drugs; Z79.82 Long term (current) use of aspirin; Z79.899 Other long term (current) drug therapy; E78.5 Hyperlipidemia, unspecified; I25.2 Old myocardial infarction; I25.10 Atherosclerotic heart disease of native coronary artery without angina pectoris; Z95.5 Presence of coronary angioplasty implant and graft; Z87.891 Personal history of nicotine dependence; H54.7 Unspecified visual loss; E03.9 Hypothyroidism, unspecified; Z53.09 Procedure and treatment not carried out because of other contraindication
CPT/HCPCS: 01402; 36415; 51798; 80053; 82962; 85027; 87075; 87205; 87641; 97110-GP; 97116-GP; 97161-GP; 97165-GO; 97535-GO; A9270-GY; J0171; J0690; J0697; J1815-GY; J1885; J2250; J2270; J2704; J3010; J3370; J3490; J7120

== ENCOUNTER 2017-05-22 05:58 | Day surgery (SDC) | payer MEDICARE, BC ==
[2017-05-22] MEDS ORDERED: Magnesium Hydroxide 400 MG/5 ML Susp 30 ML Cup PO PRN (06:15)
[2017-05-22] MEDS ORDERED: Sennosides 8.6 MG Tab PO PRN (06:15)
[2017-05-22] MEDS ORDERED: Morphine 2 MG/ML Syringe IVPUSH PRN (06:15)
[2017-05-22] MEDS ORDERED: Ondansetron 4 MG/2 ML SDV IVPUSH PRN ×2 (06:15→07:34)
[2017-05-22] MEDS ORDERED: Bisacodyl 5 MG Tab PO PRN (06:15)
[2017-05-22] MEDS ORDERED: Naloxone 0.4 MG/ML SDV IVPUSH PRN (06:15)
[2017-05-22] MEDS ORDERED: diphenhydrAMINE 50 MG/ML SDV IVPUSH PRN (06:15)
[2017-05-22] MEDS ORDERED: ceFAZolin 1 GM Vial ONE (06:19)
[2017-05-22] MEDS ORDERED: Propofol 200 MG/20 ML SDV ONE ×2 (06:40→06:41)
[2017-05-22] MEDS ORDERED: Lidocaine 1% 4 ML ONE (06:40)
[2017-05-22] MEDS ORDERED: fentaNYL 100 MCG/2 ML SDV ONE (06:40)
[2017-05-22] MEDS ORDERED: Midazolam 1 MG/ML 2 ML SDV ONE (06:41)
[2017-05-22] MEDS ORDERED: Morphine PF 1 MG/ML Amp ONE (06:49)
--- NOTE | 2017-05-22 06:51 | PCM.PREANE ---
Preanesthetic Assessment - Anesthesia/Transfusion/Family Hx Anesthesia History: Prior Anesthesia Without Reaction Family History of Anesthesia Reaction: No Transfusion History: No Prior Transfusion(s) - Review of Systems General: No Symptoms Pulmonary: No Symptoms Cardiovascular: No Symptoms Gastrointestinal: No Symptoms Neurological: No Symptoms Other: Reports: Diabetes - Physical Assessment NPO Status Date: 05/21/17 NPO Status Time: 20:00 Pulse: 85 O2 Sat by Pulse Oximetry: 99 Respiratory Rate: 16 Blood Pressure: 136/61 Temperature: 98.2 F Height: 6 ft Weight: 91.6 kg ASA Class: 3 Mental Status: Alert & Oriented x3 Airway Class: Mallampati = 1 Dentition: Reports: Normal Dentition, Dentures (upper) Thyro-Mental Finger Breadths: 3 Mouth Opening Finger Breadths: 3 ROM/Head Extension: Full Lungs: Clear to Auscultation, Normal Respiratory Effort Cardiovascular: Regular Rate, Regular Rhythm - Lab Values: Laboratory Last Values POC Glucose 210 mg/dL (80-115) H 05/22/17 06:23 MRSA (PCR) Negative 04/28/17 11:28 - Allergies Allergies/Adverse Reactions: Allergies Allergy/AdvReac Type Severity Reaction Status Date / Time No Known Allergies Allergy Verified 05/19/17 13:14 - Blood Blood Available: No - Anesthesia Plan Pre-Op Medication Ordered: Beta Peter Beta Peter: Metoprolol Med Last Dose Date: 05/22/17 Med Last Dose Time: 05:00 - Acknowledgements Anesthesia Type Planned: Spinal Pt an Appropriate Candidate for the Planned Anesthesia: Yes Alternatives and Risks of Anesthesia Discussed w Pt/Guardian: Yes Pt/Guardian Understands and Agrees with Anesthesia Plan: Yes PreAnesthesia Questionnaire HEENT History: Reports: Impaired Vision Other HEENT History: has upper denture, wears glasses Cardiovascular History: Reports: CAD, High Cholesterol, Hypertension, VA, Stents Respiratory History: Reports: None Gastrointestinal History: Reports: None Genitourinary History: Reports: None, Other (See Below) Other Genitourinary History: chronic kidney disease EVAPORATOR HELPER History: Reports: None Musculoskeletal History: Reports: Arthritis, Osteoarthritis Neurological History: Reports: None Psychiatric History: Reports: None Endocrine/Metabolic History: Reports: Diabetes, Type II, Hypothyroidism Hematologic History: Reports: None Immunologic History: Reports: None Oncologic (Cancer) History: Reports: None Dermatologic History: Reports: None - Infectious Disease History Infectious Disease History: Reports: None - Past Surgical History Head Surgeries/Procedures: Reports: None HEENT Surgical History: Reports: None Cardiovascular Surgical History: Respiratory Surgical History: Reports: None GI Surgical History: Reports: Appendectomy, Cholecystectomy Female Surgical History: Reports: None Male Surgical History: Reports: None Endocrine Surgical History: Reports: None Neurological Surgical History: Reports: None Musculoskeletal Surgical History: Reports: Arthroscopic Knee, Knee Replacement Dermatological Surgical History: Reports: None - SUBSTANCE USE Smoking Status *Q: Former Smoker Tobacco Use Within Last Twelve Months: Cigarettes Second Hand Smoke Exposure: No Days Per Week of Alcohol Use: 0 Number of Drinks Per Day: 0 Total Drinks Per Week: 0 Recreational Drug Use History: No - HOME MEDS Home Medications: Home Meds Hydrochlorothiazide 12.5 mg PO DAILY 03/17/17 [History] Levothyroxine 125 mcg PO DAILY 03/17/17 [History] Metoprolol Succinate 25 mg PO DAILY 03/17/17 [History] Nitroglycerin [Nitrostat] 0.4 mg SL Q5M PRN 03/17/17 [History] Rosuvastatin Calcium 10 mg PO MOWEFR 03/17/17 [History] amLODIPine [Norvasc] 10 mg PO DAILY 03/17/17 [History] glipiZIDE [Glucotrol] 10 mg PO DAILY 03/17/17 [History] metFORMIN HCl [Metformin HCl ER] 1,000 mg PO BID 03/17/17 [History] Aspirin [Ecotrin] 325 mg PO DAILY 05/19/17 [History] Valsartan [Valsartan] 160 mg PO DAILY 05/19/17 [History] - CURRENT (IN HOUSE) MEDS Current Meds: Current Medications Aspirin (Ecotrin) 325 mg PO BID [facility] Bisacodyl (Dulcolax) 5 mg PO DAILY PRN PRN Reason: Constipation Morphine Sulfate 8 mg/Epinephrine HCl 0.3 mg/Cefuroxime Sodium 750 mg/Ketorolac Tromethamine 30 mg/Sodium Chloride 27.9 ml 0 mg .XX ONETIME ONE Stop: 05/22/17 06:16 Cyclobenzaprine HCl (Flexeril) 10 mg PO TID PRN PRN Reason: Spasms Diphenhydramine HCl (Benadryl) 25 mg IVPUSH Q4H PRN PRN Reason: Nausea Docusate Sodium (Colace) 100 mg PO BID [facility] Famotidine (Pepcid) 20 mg PO Q12H [facility] Lactated Ringer's (Ringers, Lactated) 1,000 mls @ 125 mls/hr IV ASDIRECTED [facility] Stop: 05/22/17 23:00 Cefazolin Sodium/Dextrose 2 gm (/ Premix) 50 mls @ 100 mls/hr IV Q8H [facility] Stop: 05/22/17 22:44 Lidocaine/Sodium Bicarbonate (Buffered Lidocaine 1% In Ns 8.4%) 0.25 ml IV ONETIME PRN PRN Reason: Prior to IV Start Stop: 05/22/17 18:00 Magnesium Hydroxide (Milk Of Magnesia) 30 ml PO BID PRN PRN Reason: Constipation Morphine Sulfate (Morphine) 2 mg IVPUSH Q2H PRN PRN Reason: Breakthrough Pain Naloxone HCl (Narcan) 0.1 mg IVPUSH Q5M PRN PRN Reason: Oversedation Ondansetron HCl (Zofran) 4 mg IVPUSH Q6H PRN PRN Reason: Nausea/Vomiting Oxycodone/Acetaminophen (Percocet 325-5 Mg) 1 - 2 tab PO Q4H PRN PRN Reason: Pain Senna (Senna) 8.6 mg PO BID PRN PRN Reason: Constipation Sodium Chloride (Saline Flush) 10 ml FLUSH ASDIRECTED PRN PRN Reason: Keep Vein Open Stop: 05/22/17 18:00 Discontinued Medications Bupivacaine HCl (Marcaine 0.25%) Confirm Administered Dose 30 ml .ROUTE .STK- MED ONE Stop: 05/22/17 06:21 Cefazolin Sodium (Ancef) Confirm Administered Dose 2 gm .ROUTE .STK-MED ONE Stop: 05/22/17 06:20 Cefazolin Sodium (Ancef) Confirm Administered Dose 2 gm .ROUTE .STK-MED ONE Stop: 05/22/17 06:42 Fentanyl (Sublimaze) Confirm Administered Dose 100 mcg .ROUTE .STK-MED ONE Stop: 05/22/17 06:41 Lidocaine HCl (Xylocaine-Mpf 1%) Confirm Administered Dose 4 mls @ as directed .ROUTE .STK-MED ONE Stop: 05/22/17 06:41 Iodine (Iodine 2% Mild Tincture) Confirm Administered Dose 30 ml .ROUTE .STK- MED ONE Stop: 05/22/17 06:21 Midazolam HCl (Versed 1 Mg/Ml) Confirm Administered Dose 2 mg .ROUTE .STK-MED ONE Stop: 05/22/17 06:42 Morphine Sulfate (Duramorph Pf) Confirm Administered Dose 1 mg .ROUTE .STK-MED ONE Stop: 05/22/17 06:50 Propofol (Diprivan 20 Ml) Confirm Administered Dose 400 mg .ROUTE .STK-MED ONE Stop: 05/22/17 06:41 Propofol (Diprivan 20 Ml) Confirm Administered Dose 200 mg .ROUTE .STK-MED ONE Stop: 05/22/17 06:42 Tranexamic Acid (Cyklokapron) Confirm Administered Dose 1,000 mg .ROUTE .STK- MED ONE Stop: 05/22/17 06:20 Vancomycin HCl (Vancomycin) Confirm Administered Dose 1 gm .ROUTE .STK-MED ONE Stop: 05/22/17 06:20
[2017-05-22] MEDS ORDERED: Lidocaine 1%/Sod Bicarbonate in NS 8.4% 1 ML Syringe IV PRN (07:00)
[2017-05-22] MEDS ORDERED: Lactated Ringers 1,000 ML IV SCH (07:00)
[2017-05-22] MEDS ORDERED: Sodium Chloride 0.9% 10 ML Syringe FLUSH PRN (07:00)
--- NOTE | 2017-05-22 07:03 | PCM.OPNOTE ---
- General Post-Op/Procedure Note Date of Surgery/Procedure: 05/22/17 Operative Procedure(s): left total knee arthroplasty Pre Op Diagnosis: left knee osteoarthrosis Post-Op Diagnosis: Same Anesthesia Technique: Local, MAC, Spinal Primary Surgeon: Subhash Zhu Anesthesia Provider: Eric Menezes Multimedia Producer: Gilda Talley Multimedia Producer: Hyacinth Schaeffer in mLs: 10 Complications: None Condition: Good
[2017-05-22] MEDS ORDERED: Lactated Ringers 1,000 ML ONE ×2 (07:18)
[2017-05-22] MEDS ORDERED: Phenylephrine/Normal Saline 100 MCG/ML 10 ML Syringe ONE ×2 (07:22→08:54)
[2017-05-22] MEDS ORDERED: ePHEDrine/Normal Saline 25 MG/5 ML Syringe ONE ×2 (07:27→08:14)
[2017-05-22] MEDS ORDERED: Meperidine PF 50 MG/ML Syringe IVPUSH PRN (07:34)
[2017-05-22] MEDS ORDERED: fentaNYL 100 MCG/2 ML SDV IVPUSH PRN (07:34)
[2017-05-22] MEDS: Iodine/Sodium Iodide 2% Tincture 30 ML Bottle ONE ×2 (07:51→08:22)
[2017-05-22] MEDS: ceFAZolin 1 GM Vial ONE ×2 (07:52→08:25)
[2017-05-22] MEDS: Bupivacaine 0.25% 30 ML SDV ONE ×2 (07:52→08:31)
[2017-05-22] MEDS: Vancomycin 1 GM SDV ONE ×2 (07:54→08:34)
[2017-05-22] MEDS ORDERED: Morphine 8 MG, EPINEPHrine 0.3 MG, Cefuroxime 750 MG, Ketorolac 30 MG, Sodium Chloride ... ONE ×5 (08:30)
[2017-05-22] MEDS ORDERED: Ketorolac 30 MG/ML SDV ONE (09:15)
--- NOTE | 2017-05-22 09:19 | PCM.POSTAN ---
POST ANESTHESIA ASSESSMENT - MENTAL STATUS Mental Status: Alert, Oriented - VITAL SIGNS Pulse Rate: 83 SaO2: 98 Resp Rate: 13 Blood Pressure: 91/45 Temperature: 98.8 F - RESPIRATORY Respiratory Status: Respiratory Rate WNL, Airway Patent, O2 Saturation Stable, Supplemental Oxygen - CARDIOVASCULAR CV Status: Pulse Rate WNL, Blood Pressure Stable - GASTROINTESTINAL GI Status: No Symptoms - PAIN Pain Score: 0 - POST OP HYDRATION Hydration Status: Adequate & Stable
--- NOTE | 2017-05-22 10:22 | CR ---
Left knee: AP and lateral views of the left knee were obtained. Comparison: No previous study. Left knee prosthesis is seen. Components are aligned. Underlying bony structures are intact. Soft tissue air is noted from the surgical procedure. Bony structures are osteopenic. Vascular calcification is identified. Impression: 1. Satisfactory radiographic appearance of recently placed left knee prosthesis. Diagnostic code #2
[2017-05-22] MEDS ORDERED: 50% Dextrose in Water 50 ML Syringe IVPUSH PRN (12:21)
--- NOTE | 2017-05-22 12:28 | PCM.CONS ---
H&P History of Present Illness - General Date of Service: 05/22/17 Admit Problem/Dx: Admission Diagnosis/Problem Admission Diagnosis/Problem Osteoarthritis of knee Source of Information: Patient, Old Records History Limitations: Reports: No Limitations - History of Present Illness Initial Comments - Free Text/Narative: Clay is a pleasant 66-year-old male resting comfortably in bed seen this afternoon. He is status post total arthroplasty of the left knee with Dr. Zhu this morning. He denies complaints of nausea no shortness of breath, chest pain , abdominal or back pain or headache. States at present time he has minimal pain to the left knee. He is able to lift the leg up and shows me with ease. Distally he wiggles his toes and states sensation feels the same on both sides. He offers no other complaints or concerns today. Past medical history significant for coronary artery disease status post AMI with PCI, hyperlipidemia, hypertension, chronic kidney disease, hypothyroidism, type 2 diabetes, osteoarthritis, former smoker. Home diabetes medications are metformin and glipizide. Hospitalist service is consulted for postoperative medical management. Patient is full CODE STATUS. PCP is Dr. Lin with [facility]. Left Knee Pain Score (Numeric/FACES): 1 - Related Data Allergies/Adverse Reactions: Allergies Allergy/AdvReac Type Severity Reaction Status Date / Time No Known Allergies Allergy Verified 05/22/17 07:14 Home Medications: Home Meds Hydrochlorothiazide 12.5 mg PO DAILY 03/17/17 [History] Levothyroxine 125 mcg PO DAILY 03/17/17 [History] Metoprolol Succinate 25 mg PO DAILY 03/17/17 [History] Nitroglycerin [Nitrostat] 0.4 mg SL Q5M PRN 03/17/17 [History] Rosuvastatin Calcium 10 mg PO MOWEFR 03/17/17 [History] amLODIPine [Norvasc] 10 mg PO DAILY 03/17/17 [History] glipiZIDE [Glucotrol] 10 mg PO DAILY 03/17/17 [History] metFORMIN HCl [Metformin HCl ER] 1,000 mg PO BID 03/17/17 [History] Aspirin [Ecotrin] 325 mg PO DAILY 05/19/17 [History] Valsartan [Valsartan] 160 mg PO DAILY 05/19/17 [History] Past Medical History HEENT History: Reports: Impaired Vision Other HEENT History: has upper denture, wears glasses Cardiovascular History: Reports: CAD, High Cholesterol, Hypertension, VT, Stents Respiratory History: Reports: None Gastrointestinal History: Reports: None Genitourinary History: Reports: None, Other (See Below) Other Genitourinary History: chronic kidney disease [employer] MEMBER History: Reports: None Musculoskeletal History: Reports: Arthritis, Osteoarthritis Neurological History: Reports: None Psychiatric History: Reports: None Endocrine/Metabolic History: Reports: Diabetes, Type II, Hypothyroidism Hematologic History: Reports: None Immunologic History: Reports: None Oncologic (Cancer) History: Reports: None Dermatologic History: Reports: None - Infectious Disease History Infectious Disease History: Reports: None - Past Surgical History Head Surgeries/Procedures: Reports: None HEENT Surgical History: Reports: None Cardiovascular Surgical History: Respiratory Surgical History: Reports: None GI Surgical History: Reports: Appendectomy, Cholecystectomy Female Surgical History: Reports: None Male Surgical History: Reports: None Endocrine Surgical History: Reports: None Neurological Surgical History: Reports: None Musculoskeletal Surgical History: Reports: Arthroscopic Knee, Knee Replacement Dermatological Surgical History: Reports: None Social & Family History - Family History Family Medical History: Noncontributory - Tobacco Use Smoking Status *Q: Former Smoker Years of Tobacco use: 15 Used Tobacco, but Quit: Yes Month Tobacco Last Used: quit 30 years ago Second Hand Smoke Exposure: No - Caffeine Use Caffeine Use: Reports: Coffee - Alcohol Use Days Per Week of Alcohol Use: 0 Number of Drinks Per Day: 0 Total Drinks Per Week: 0 - Recreational Drug Use Recreational Drug Use: No H&P Review of Systems - Review of Systems: Review Of Systems: See Below General: Reports: No Symptoms HEENT: Reports: No Symptoms Pulmonary: Reports: No Symptoms Cardiovascular: Reports: No Symptoms Gastrointestinal: Reports: No Symptoms Genitourinary: Reports: No Symptoms, Other (rodgers cath) Musculoskeletal: Reports: No Symptoms Neurological: Reports: No Symptoms Immunologic: Reports: No Symptoms Exam - Exam Exam: See Below - Vital Signs Vital Signs: Last Vital Signs Temp 97.7 F 05/22/17 09:55 Pulse 83 05/22/17 09:19 Resp 18 05/22/17 11:42 BP 95/53 L 05/22/17 09:55 Pulse Ox 98 05/22/17 12:18 Weight: 201 lb - Exam Quality Assessment: Urinary Catheter, DVT Prophylaxis. No: Supplemental Oxygen General: Alert, Oriented, Cooperative HEENT: Conjunctiva Clear, EOMI, Hearing Intact, Pupils Equal, PERRLA Neck: Supple, Trachea Midline Lungs: Clear to Auscultation, Normal Respiratory Effort Cardiovascular: Regular Rate, Regular Rhythm, Normal S1, Normal S2 GI/Abdominal Exam: Normal Bowel Sounds, Soft, Non-Tender (Male) Exam: Deferred, Other (rodgers cath draining clear yellow urine) Rectal (Males) Exam: Deferred Extremities: Normal Capillary Refill, Other (lashell wrap and ice to lt knee/leg. CMS + and = bilat.) Peripheral Pulses: 2+: Dorsalis Pedis (L), Dorsalis Pedis (R) Neuro Extensive - Mental Status: Alert, Oriented x3, Normal Mood/Affect, Normal Cognition, Memory Intact Psychiatric: Alert, Normal Affect, Normal Mood - Patient Data Lab Results Last 24 hrs: Laboratory Results - last 24 hr 05/22/17 05/22/17 Range/Units 06:23 10:28 POC Glucose 210 H 208 H (80-115) mg/dL Consult PN Assessment/Plan POD#: 0 Procedures: Procedures CULTURE OTHR SPECIMN AEROBIC (12/06/13) HT MUSCLE IMAGE SPECT MULT (01/08/16) (1) S/P total knee arthroplasty SNOMED Code(s): 4932645777016, 6207661166847 Code(s): Z96.659 - PRESENCE OF UNSPECIFIED ARTIFICIAL KNEE JOINT Priority: High Current Visit: Yes Qualifiers: Laterality: left Qualified Code(s): Z96.652 - Presence of left artificial knee joint (2) Osteoarthritis SNOMED Code(s): 684959459 Code(s): M19.90 - UNSPECIFIED OSTEOARTHRITIS, UNSPECIFIED SITE Priority: High Current Visit: Yes Qualifiers: Osteoarthritis location: knee Osteoarthritis type: primary Laterality: left Qualified Code(s): M17.12 - Unilateral primary osteoarthritis, left knee (3) 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 SNOMED Code(s): 507300935 Code(s): I25.10 - ATHSCL HEART DISEASE OF [place] CORONARY ARTERY W/O ANG PCTRS; I25.2 - OLD MYOCARDIAL INFARCTION Priority: Medium Current Visit: No (4) Type 2 diabetes mellitus SNOMED Code(s): 63345766 Code(s): E11.9 - TYPE 2 DIABETES MELLITUS WITHOUT COMPLICATIONS Priority: Medium Current Visit: Yes Qualifiers: Diabetes mellitus complication status: with unspecified complications Diabetes mellitus terminal operator insulin use: without terminal operator use Qualified Code( s): E11.8 - Type 2 diabetes mellitus with unspecified complications Problem List Initiated/Reviewed/Updated: Yes My Orders Last 24 Hours: My Active Orders 05/22/17 12:20 Accu Check [Blood Glucose Check, Bedside] [RC] QIDACANDBED 05/22/17 12:21 Dextrose 50% in Water 50 ml IVPUSH ASDIRECTED PRN 05/22/17 17:00 Insulin Aspart [NovoLOG] See Protocol SUBCUT QIDACANDBED 05/22/17 21:00 metFORMIN HCl [Metformin HCl ER] 1,000 mg PO BID 05/23/17 09:00 Hydrochlorothiazide [Hydrochlorothiazide] 12.5 mg PO DAILY Levothyroxine [Levothyroxine] 125 mcg PO DAILY Metoprolol Succinate [Metoprolol Succinate] 25 mg PO DAILY Valsartan [Valsartan] 160 mg PO DAILY amLODIPine [Norvasc] 10 mg PO DAILY glipiZIDE [Glucotrol] 10 mg PO DAILY Plan: I/P: S/P lt total knee arthroplasty, POD # 0, Dr. Zhu - Pain management and DVT prophylax - PT/OT - RT/IS - Hgb, will follow morning labs - Currently vital signs stable on room air, continue close monitoring. Type 2 diabetes -Accu-Cheks before meals and at bedtime, home meds to be started tomorrow of metformin and glipizide, sliding scale NovoLog insulin per protocol. History of coronary artery disease, status post AMI with PCI -Telemetry monitoring overnight Chronic conditions: Cont home meds HTN HLD Hypothyroidism CKD- monitor/follow am labs Former smoker Other: GI Prophylax CM/SW for DC planning Patient is full Code status. PCP is Dr. Lin her with [facility] Requesting Provider: Dr. Zhu Date Consult Requested: 05/22/17 Reason for Consult: Postoperative medical management Patient History Reviewed: Yes Time Spent (in minutes): 45
[2017-05-22] MEDS: ceFAZolin 2 GM in Premix Bag 1 BAG IV SCH ×2 (15:18→22:11)
[2017-05-22] MEDS: METFORMIN 1000 MG PO SCH (15:40)
[2017-05-22] MEDS ORDERED: GLIPIZIDE 10 MG PO SCH (16:00)
[2017-05-22] MEDS: Insulin Aspart 100 Units/ML 3 ML Pen SUBCUT SCH ×2 (16:34→22:13)
[2017-05-22] MEDS: Docusate Sodium 100 MG Cap PO SCH (22:11)
[2017-05-22] MEDS: Acetaminophen/oxyCODONE 325-5 MG Tab PO PRN (22:11)
[2017-05-22] MEDS: Cyclobenzaprine 10 MG Tab PO PRN (22:11)
[2017-05-22] MEDS: Famotidine 20 MG Tab PO SCH (22:12)
[2017-05-23] MEDS ORDERED: LEVOTHYROXINE 125 MCG PO SCH (06:00)
[2017-05-23] MEDS: ceFAZolin 2 GM in Premix Bag 1 BAG IV SCH (06:22)
[2017-05-23] MEDS: Acetaminophen/oxyCODONE 325-5 MG Tab PO PRN ×2 (06:23→12:18)
[2017-05-23] MEDS: Cyclobenzaprine 10 MG Tab PO PRN ×2 (06:23→15:20)
[2017-05-23] MEDS: METFORMIN 1000 MG PO SCH ×2 (06:24→12:08)
[2017-05-23] MEDS: Insulin Aspart 100 Units/ML 3 ML Pen SUBCUT SCH ×2 (06:33→12:07)
--- NOTE | 2017-05-23 08:03 | PCM48HPAN ---
Post Anesthesia Note - EVALUATION WITHIN 48HRS OF ANESTHETIC Vital Signs in Normal Range: Yes Patient Participated in Evaluation: Yes Respiratory Function Stable: Yes Airway Patent: Yes Cardiovascular Function Stable: Yes Hydration Status Stable: Yes Pain Control Satisfactory: Yes Nausea and Vomiting Control Satisfactory: Yes Mental Status Recovered: Yes - COMMENTS/OBSERVATIONS Free Text/Narrative:: Patient did not have any complaints resting in bed. Doing well. Denies any headaches, back pain, or residual numbness/ tingling to LE.
[2017-05-23] MEDS ORDERED: METOPROLOL SUCCINATE 25 MG PO SCH (09:00)
[2017-05-23] MEDS ORDERED: AMLODIPINE 10 MG PO SCH (09:00)
[2017-05-23] MEDS ORDERED: ASPIRIN 325 MG PO SCH (09:00)
[2017-05-23] MEDS ORDERED: HYDROCHLOROTHIAZIDE 12.5 MG TABLET PO SCH (09:00)
[2017-05-23] MEDS: Docusate Sodium 100 MG Cap PO SCH (09:22)
[2017-05-23] MEDS: Famotidine 20 MG Tab PO SCH (09:22)
--- NOTE | 2017-05-23 12:23 | PCM.CONSN ---
- General Info Date of Service: 05/23/17 Admission Dx/Problem (Free Text): Admission Diagnosis/Problem Admission Diagnosis/Problem Osteoarthritis of knee POD #1, TKA with Dr. Zhu Doing well, pain controlled, no n/v, voiding. VSS on RA Plans dc home today Functional Status: Reports: Pain Controlled, Tolerating Diet, Ambulating, Urinating, Incentive Spirometry - Review of Systems General: Reports: No Symptoms HEENT: Reports: No Symptoms Pulmonary: Reports: No Symptoms Cardiovascular: Reports: No Symptoms Gastrointestinal: Reports: No Symptoms Genitourinary: Reports: No Symptoms Musculoskeletal: Reports: Leg Pain Skin: Reports: No Symptoms Neurological: Reports: No Symptoms Psychiatric: Reports: No Symptoms - Patient Data Vitals - Most Recent: Last Vital Signs Temp 97.5 F 05/23/17 12:00 Pulse 97 05/23/17 09:21 Resp 16 05/23/17 12:00 BP 130/61 05/23/17 12:00 Pulse Ox 98 05/23/17 12:00 Weight - Most Recent: 201 lb I&O - Last 24 Hours: Intake & Output 05/22/17 05/23/17 05/23/17 22:59 06:59 14:59 Intake Total 920 600 420 Output Total 275 Balance 645 600 420 Lab Results Last 24 Hours: Laboratory Results - last 24 hr 05/22/17 05/22/17 05/23/17 Range/Units 15:35 21:47 06:10 WBC 4.49 (4.23-9.07) K/mm3 RBC 3.80 L (4.63-6.08) M/mm3 Hgb 11.3 L (13.7-17.5) gm/L Hct 33.1 L (40.1-51.0) % MCV 87.1 (79.0-92.2) fl MCH 29.7 (25.7-32.2) pg MCHC 34.1 (32.2-35.5) g/dl RDW Std Deviation 37.8 (35.1-43.9) fL Plt Count 143 L (163-337) K/mm3 MPV 11.6 (9.4-12.3) fl Sodium (136-145) mEq/L Potassium (3.5-5.1) mEq/L Chloride (98-107) mEq/L Carbon Dioxide (21-32) mEq/L Anion Gap (5-15) BUN (7-18) mg/dL Creatinine (0.7-1.3) mg/dL Est Cr Clr Drug Dosing mL/min Estimated GFR (MDRD) (>60) mL/min BUN/Creatinine Ratio (14-18) Glucose (80-115) mg/dL POC Glucose 151 H 195 H (80-115) mg/dL Calcium (8.5-10.1) mg/dL Total Bilirubin (0.2-1.0) mg/dL AST (15-37) U/L ALT (16-63) U/L Alkaline Phosphatase (46-116) U/L Total Protein (6.4-8.2) g/dl Albumin (3.4-5.0) g/dl Globulin gm/dL Albumin/Globulin Ratio (1-2) 05/23/17 05/23/17 05/23/17 Range/Units 06:10 06:14 10:13 WBC (4.23-9.07) K/mm3 RBC (4.63-6.08) M/mm3 Hgb (13.7-17.5) gm/L Hct (40.1-51.0) % MCV (79.0-92.2) fl MCH (25.7-32.2) pg MCHC (32.2-35.5) g/dl RDW Std Deviation (35.1-43.9) fL Plt Count (163-337) K/mm3 MPV (9.4-12.3) fl Sodium 137 (136-145) mEq/L Potassium 4.1 (3.5-5.1) mEq/L Chloride 104 (98-107) mEq/L Carbon Dioxide 25 (21-32) mEq/L Anion Gap 12.1 (5-15) BUN 18 (7-18) mg/dL Creatinine 1.2 (0.7-1.3) mg/dL Est Cr Clr Drug Dosing 66.46 mL/min Estimated GFR (MDRD) > 60 (>60) mL/min BUN/Creatinine Ratio 15.0 (14-18) Glucose 132 H (80-115) mg/dL POC Glucose 122 H 232 H (80-115) mg/dL Calcium 8.8 (8.5-10.1) mg/dL Total Bilirubin 0.9 (0.2-1.0) mg/dL AST 12 L (15-37) U/L ALT 15 L (16-63) U/L Alkaline Phosphatase 52 (46-116) U/L Total Protein 5.9 L (6.4-8.2) g/dl Albumin 3.1 L (3.4-5.0) g/dl Globulin 2.8 gm/dL Albumin/Globulin Ratio 1.1 (1-2) Med Orders - Current: Current Medications Amlodipine Besylate (Norvasc) 10 mg PO DAILY [facility] Last Admin: 05/23/17 09:22 Dose: 10 mg Aspirin (Ecotrin) 325 mg PO BID [facility] Last Admin: 05/23/17 09:21 Dose: 325 mg Bisacodyl (Dulcolax) 5 mg PO DAILY PRN PRN Reason: Constipation Cyclobenzaprine HCl (Flexeril) 10 mg PO TID PRN PRN Reason: Spasms Last Admin: 05/23/17 06:23 Dose: 10 mg Dextrose/Water (Dextrose 50% In Water) 50 ml IVPUSH ASDIRECTED PRN PRN Reason: hypoglycemia- BG <80 Diphenhydramine HCl (Benadryl) 25 mg IVPUSH Q4H PRN PRN Reason: Nausea Docusate Sodium (Colace) 100 mg PO BID [facility] Last Admin: 05/23/17 09:22 Dose: 100 mg Famotidine (Pepcid) 20 mg PO BID [facility] Last Admin: 05/23/17 09:22 Dose: 20 mg Glipizide (Glucotrol) 10 mg PO DAILY@1600 [facility] Last Admin: 05/22/17 15:41 Dose: 10 mg Insulin Aspart (Novolog) 0 unit SUBCUT QIDACANDBED [facility] PRN Reason: Protocol Last Admin: 05/23/17 12:07 Dose: 2 unit Levothyroxine Sodium (Levothyroxine) 125 mcg PO ACBREAKFAST [facility] Last Admin: 05/23/17 06:23 Dose: 125 mcg Magnesium Hydroxide (Milk Of Magnesia) 30 ml PO BID PRN PRN Reason: Constipation Metoprolol Succinate (Toprol Xl) 25 mg PO DAILY [facility] Last Admin: 05/23/17 09:21 Dose: 25 mg Morphine Sulfate (Morphine) 2 mg IVPUSH Q2H PRN PRN Reason: Breakthrough Pain Naloxone HCl (Narcan) 0.1 mg IVPUSH Q5M PRN PRN Reason: Oversedation Ondansetron HCl (Zofran) 4 mg IVPUSH Q6H PRN PRN Reason: Nausea/Vomiting Ondansetron HCl (Zofran) 4 mg IVPUSH ONETIME PRN PRN Reason: Nausea/Vomiting Oxycodone/Acetaminophen (Percocet 325-5 Mg) 1 - 2 tab PO Q4H PRN PRN Reason: Pain Last Admin: 05/23/17 12:18 Dose: 2 tab Hydrochlorothiazide (12.5 Mg Tablet) 0 each PO DAILY [facility] Last Admin: 05/23/17 09:23 Dose: 12.5 each Metformin 1,000 Mg 0 each PO BID@0700,1200 [facility] Last Admin: 05/23/17 12:08 Dose: 1 each Valsartan 160 Mg 0 each PO DAILY@2000 [facility] Last Admin: 05/22/17 22:16 Dose: Not Given Senna (Senna) 8.6 mg PO BID PRN PRN Reason: Constipation Discontinued Medications Bupivacaine HCl (Marcaine 0.25%) Confirm Administered Dose 30 ml .ROUTE .STK- MED ONE Stop: 05/22/17 06:21 Last Admin: 05/22/17 08:31 Dose: 25 ml Cefazolin Sodium (Ancef) Confirm Administered Dose 2 gm .ROUTE .STK-MED ONE Stop: 05/22/17 06:20 Cefazolin Sodium (Ancef) Confirm Administered Dose 2 gm .ROUTE .STK-MED ONE Stop: 05/22/17 06:42 Last Admin: 05/22/17 08:25 Dose: 2 gm Morphine Sulfate 8 mg/Epinephrine HCl 0.3 mg/Cefuroxime Sodium 750 mg/Ketorolac Tromethamine 30 mg/Sodium Chloride 27.9 ml 0 mg .XX ONETIME ONE Stop: 05/22/17 08:31 Last Admin: 05/22/17 08:29 Dose: 788.3 mg Ephedrine Sulfate (Ephedrine In Ns) Confirm Administered Dose 25 mg .ROUTE .STK- MED ONE Stop: 05/22/17 07:28 Ephedrine Sulfate (Ephedrine In Ns) Confirm Administered Dose 25 mg .ROUTE .STK- MED ONE Stop: 05/22/17 08:15 Fentanyl (Sublimaze) Confirm Administered Dose 100 mcg .ROUTE .STK-MED ONE Stop: 05/22/17 06:41 Fentanyl (Sublimaze) 50 mcg IVPUSH Q5M PRN PRN Reason: Pain Lactated Ringer's (Ringers, Lactated) 1,000 mls @ 125 mls/hr IV ASDIRECTED [facility] Stop: 05/22/17 23:00 Last Admin: 05/22/17 06:40 Dose: 125 mls/hr Cefazolin Sodium/Dextrose 2 gm (/ Premix) 50 mls @ 100 mls/hr IV Q8H [facility] Stop: 05/23/17 07:29 Last Admin: 05/23/17 06:22 Dose: 100 mls/hr Lidocaine HCl (Xylocaine-Mpf 1%) Confirm Administered Dose 4 mls @ as directed .ROUTE .STK-MED ONE Stop: 05/22/17 06:41 Lactated Ringer's (Ringers, Lactated) Confirm Administered Dose 1,000 mls @ as directed .ROUTE .STK-MED ONE Stop: 05/22/17 07:19 Lactated Ringer's (Ringers, Lactated) Confirm Administered Dose 1,000 mls @ as directed .ROUTE .STK-MED ONE Stop: 05/22/17 07:19 Iodine (Iodine 2% Mild Tincture) Confirm Administered Dose 30 ml .ROUTE .STK- MED ONE Stop: 05/22/17 06:21 Last Admin: 05/22/17 08:22 Dose: 18 ml Ketorolac Tromethamine (Toradol) Confirm Administered Dose 30 mg .ROUTE .STK- MED ONE Stop: 05/22/17 09:16 Lidocaine/Sodium Bicarbonate (Buffered Lidocaine 1% In Ns 8.4%) 0.25 ml IV ONETIME PRN PRN Reason: Prior to IV Start Stop: 05/22/17 18:00 Last Admin: 05/22/17 06:39 Dose: 0.25 ml Meperidine HCl (Demerol) 12.5 mg IVPUSH ONETIME PRN PRN Reason: shivering Midazolam HCl (Versed 1 Mg/Ml) Confirm Administered Dose 2 mg .ROUTE .STK-MED ONE Stop: 05/22/17 06:42 Morphine Sulfate (Duramorph Pf) Confirm Administered Dose 1 mg .ROUTE .STK-MED ONE Stop: 05/22/17 06:50 Phenylephrine HCl (Phenylephrine In Ns 100 Mcg/Ml) Confirm Administered Dose 1 mg .ROUTE .STK-MED ONE Stop: 05/22/17 07:23 Phenylephrine HCl (Phenylephrine In Ns 100 Mcg/Ml) Confirm Administered Dose 1 mg .ROUTE .STK-MED ONE Stop: 05/22/17 08:55 Propofol (Diprivan 20 Ml) Confirm Administered Dose 400 mg .ROUTE .STK-MED ONE Stop: 05/22/17 06:41 Propofol (Diprivan 20 Ml) Confirm Administered Dose 200 mg .ROUTE .STK-MED ONE Stop: 05/22/17 06:42 Sodium Chloride (Saline Flush) 10 ml FLUSH ASDIRECTED PRN PRN Reason: Keep Vein Open Stop: 05/22/17 18:00 Tranexamic Acid (Cyklokapron) Confirm Administered Dose 1,000 mg .ROUTE .STK- MED ONE Stop: 05/22/17 06:20 Last Admin: 05/22/17 08:39 Dose: 1,000 mg Vancomycin HCl (Vancomycin) Confirm Administered Dose 1 gm .ROUTE .STK-MED ONE Stop: 05/22/17 06:20 Last Admin: 05/22/17 08:34 Dose: 1 gm - Exam Quality Assessment: DVT Prophylaxis General: Alert, Oriented, Cooperative, No Acute Distress HEENT: Pupils Equal, EOMI, Mucous Membr. Moist/[place] Neck: Supple Lungs: Clear to Auscultation, Normal Respiratory Effort Cardiovascular: Regular Rate, Regular Rhythm GI/Abdominal Exam: Normal Bowel Sounds, Soft, Non-Tender (Male) Exam: Deferred Extremities: No Pedal Edema, Normal Capillary Refill, Other (Teds, SCD's and ice to knee) Peripheral Pulses: 2+: Dorsalis Pedis (L), Dorsalis Pedis (R) Neurological: No New Focal Deficit Psy/Mental Status: Alert, Normal Affect, Normal Mood Consult PN Assessment/Plan POD#: 1 Procedures: Procedures CULTURE OTHR SPECIMN AEROBIC (12/06/13) HT MUSCLE IMAGE SPECT MULT (01/08/16) (1) S/P total knee arthroplasty SNOMED Code(s): 4733817379360, 1785172516162 Code(s): Z96.659 - PRESENCE OF UNSPECIFIED ARTIFICIAL KNEE JOINT Priority: High Current Visit: Yes Qualifiers: Laterality: left Qualified Code(s): Z96.652 - Presence of left artificial knee joint (2) Osteoarthritis SNOMED Code(s): 445399552 Code(s): M19.90 - UNSPECIFIED OSTEOARTHRITIS, UNSPECIFIED SITE Priority: High Current Visit: Yes Qualifiers: Osteoarthritis location: knee Osteoarthritis type: primary Laterality: left Qualified Code(s): M17.12 - Unilateral primary osteoarthritis, left knee (3) 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 SNOMED Code(s): 078045802 Code(s): I25.10 - ATHSCL HEART DISEASE OF [place] CORONARY ARTERY W/O ANG PCTRS; I25.2 - OLD MYOCARDIAL INFARCTION Priority: Medium Current Visit: No (4) Type 2 diabetes mellitus SNOMED Code(s): 39263482 Code(s): E11.9 - TYPE 2 DIABETES MELLITUS WITHOUT COMPLICATIONS Priority: Medium Current Visit: Yes Qualifiers: Diabetes mellitus complication status: with unspecified complications Diabetes mellitus detention insulin use: without terminal carman use Qualified Code( s): E11.8 - Type 2 diabetes mellitus with unspecified complications Problem List Initiated/Reviewed/Updated: Yes My Orders Last 24 Hours: My Active Orders 05/22/17 12:20 Accu Check [Blood Glucose Check, Bedside] [RC] QIDACANDBED 05/22/17 12:21 Dextrose 50% in Water 50 ml IVPUSH ASDIRECTED PRN 05/22/17 13:45 Patient's Own Medication [Ptom] 0 each PO BID@0700,1200 05/22/17 16:00 glipiZIDE [Glucotrol] 10 mg PO DAILY@1600 05/22/17 17:00 Insulin Aspart [NovoLOG] See Protocol SUBCUT QIDACANDBED 05/22/17 20:00 Patient's Own Medication [Ptom] 0 each PO DAILY@199905/23/17 06:00 Levothyroxine 125 mcg PO ACBREAKFAST 05/23/17 09:00 Metoprolol Succinate [Toprol XL] 25 mg PO DAILY Patient's Own Medication [Ptom] 0 each PO DAILY amLODIPine [Norvasc] 10 mg PO DAILY 05/23/17 12:20 Ready for Discharge [RC] PER UNIT ROUTINE Plan: I/P: S/P lt total knee arthroplasty, POD # 1, Dr. Zhu - Pain management and DVT prophylax - PT/OT - RT/IS - Hgb, 11.3 this morning - Currently vital signs stable on room air, continue close monitoring. Type 2 diabetes-- sugars 120-200 during stay. -DC home on usual home meds History of coronary artery disease, status post AMI with PCI -Telemetry monitoring overnight Chronic conditions: Cont home meds HTN HLD Hypothyroidism CKD- monitor/follow am labs Former smoker Other: GI Prophylax CM/SW for DC planning--- OK for DC home today with family from Hospitalist standpoint- doing very well. Relayed to Ortho Team. Patient is full Code status. PCP is Dr. Lin her with [facility]
--- NOTE | 2017-05-23 12:24 | PCM.SURGPN ---
- General Info Date of Service: 05/23/17 POD#: 1 Functional Status: Reports: Pain Controlled, Tolerating Diet, Ambulating, Urinating, Incentive Spirometry - Review of Systems Musculoskeletal: Reports: Other (The pt reports left calf discomfort.) - Patient Data Vitals - Most Recent: Last Vital Signs Temp 97.5 F 05/23/17 12:00 Pulse 97 05/23/17 09:21 Resp 16 05/23/17 12:00 BP 130/61 05/23/17 12:00 Pulse Ox 98 05/23/17 12:00 Weight - Most Recent: 201 lb I&O - Last 24 Hours: Intake & Output 05/22/17 05/23/17 05/23/17 22:59 06:59 14:59 Intake Total 920 600 420 Output Total 275 Balance 645 600 420 Lab Results Last 24 Hrs: Laboratory Results - last 24 hr 05/22/17 05/22/17 05/23/17 Range/Units 15:35 21:47 06:10 WBC 4.49 (4.23-9.07) K/mm3 RBC 3.80 L (4.63-6.08) M/mm3 Hgb 11.3 L (13.7-17.5) gm/L Hct 33.1 L (40.1-51.0) % MCV 87.1 (79.0-92.2) fl MCH 29.7 (25.7-32.2) pg MCHC 34.1 (32.2-35.5) g/dl RDW Std Deviation 37.8 (35.1-43.9) fL Plt Count 143 L (163-337) K/mm3 MPV 11.6 (9.4-12.3) fl Sodium (136-145) mEq/L Potassium (3.5-5.1) mEq/L Chloride (98-107) mEq/L Carbon Dioxide (21-32) mEq/L Anion Gap (5-15) BUN (7-18) mg/dL Creatinine (0.7-1.3) mg/dL Est Cr Clr Drug Dosing mL/min Estimated GFR (MDRD) (>60) mL/min BUN/Creatinine Ratio (14-18) Glucose (80-115) mg/dL POC Glucose 151 H 195 H (80-115) mg/dL Calcium (8.5-10.1) mg/dL Total Bilirubin (0.2-1.0) mg/dL AST (15-37) U/L ALT (16-63) U/L Alkaline Phosphatase (46-116) U/L Total Protein (6.4-8.2) g/dl Albumin (3.4-5.0) g/dl Globulin gm/dL Albumin/Globulin Ratio (1-2) 05/23/17 05/23/17 05/23/17 Range/Units 06:10 06:14 10:13 WBC (4.23-9.07) K/mm3 RBC (4.63-6.08) M/mm3 Hgb (13.7-17.5) gm/L Hct (40.1-51.0) % MCV (79.0-92.2) fl MCH (25.7-32.2) pg MCHC (32.2-35.5) g/dl RDW Std Deviation (35.1-43.9) fL Plt Count (163-337) K/mm3 MPV (9.4-12.3) fl Sodium 137 (136-145) mEq/L Potassium 4.1 (3.5-5.1) mEq/L Chloride 104 (98-107) mEq/L Carbon Dioxide 25 (21-32) mEq/L Anion Gap 12.1 (5-15) BUN 18 (7-18) mg/dL Creatinine 1.2 (0.7-1.3) mg/dL Est Cr Clr Drug Dosing 66.46 mL/min Estimated GFR (MDRD) > 60 (>60) mL/min BUN/Creatinine Ratio 15.0 (14-18) Glucose 132 H (80-115) mg/dL POC Glucose 122 H 232 H (80-115) mg/dL Calcium 8.8 (8.5-10.1) mg/dL Total Bilirubin 0.9 (0.2-1.0) mg/dL AST 12 L (15-37) U/L ALT 15 L (16-63) U/L Alkaline Phosphatase 52 (46-116) U/L Total Protein 5.9 L (6.4-8.2) g/dl Albumin 3.1 L (3.4-5.0) g/dl Globulin 2.8 gm/dL Albumin/Globulin Ratio 1.1 (1-2) Med Orders - Current: Current Medications Amlodipine Besylate (Norvasc) 10 mg PO DAILY [facility] Last Admin: 05/23/17 09:22 Dose: 10 mg Aspirin (Ecotrin) 325 mg PO BID [facility] Last Admin: 05/23/17 09:21 Dose: 325 mg Bisacodyl (Dulcolax) 5 mg PO DAILY PRN PRN Reason: Constipation Cyclobenzaprine HCl (Flexeril) 10 mg PO TID PRN PRN Reason: Spasms Last Admin: 05/23/17 06:23 Dose: 10 mg Dextrose/Water (Dextrose 50% In Water) 50 ml IVPUSH ASDIRECTED PRN PRN Reason: hypoglycemia- BG <80 Diphenhydramine HCl (Benadryl) 25 mg IVPUSH Q4H PRN PRN Reason: Nausea Docusate Sodium (Colace) 100 mg PO BID [facility] Last Admin: 05/23/17 09:22 Dose: 100 mg Famotidine (Pepcid) 20 mg PO BID [facility] Last Admin: 05/23/17 09:22 Dose: 20 mg Glipizide (Glucotrol) 10 mg PO DAILY@1600 [facility] Last Admin: 05/22/17 15:41 Dose: 10 mg Insulin Aspart (Novolog) 0 unit SUBCUT QIDACANDBED [facility] PRN Reason: Protocol Last Admin: 05/23/17 12:07 Dose: 2 unit Levothyroxine Sodium (Levothyroxine) 125 mcg PO ACBREAKFAST [facility] Last Admin: 05/23/17 06:23 Dose: 125 mcg Magnesium Hydroxide (Milk Of Magnesia) 30 ml PO BID PRN PRN Reason: Constipation Metoprolol Succinate (Toprol Xl) 25 mg PO DAILY [facility] Last Admin: 05/23/17 09:21 Dose: 25 mg Morphine Sulfate (Morphine) 2 mg IVPUSH Q2H PRN PRN Reason: Breakthrough Pain Naloxone HCl (Narcan) 0.1 mg IVPUSH Q5M PRN PRN Reason: Oversedation Ondansetron HCl (Zofran) 4 mg IVPUSH Q6H PRN PRN Reason: Nausea/Vomiting Ondansetron HCl (Zofran) 4 mg IVPUSH ONETIME PRN PRN Reason: Nausea/Vomiting Oxycodone/Acetaminophen (Percocet 325-5 Mg) 1 - 2 tab PO Q4H PRN PRN Reason: Pain Last Admin: 05/23/17 12:18 Dose: 2 tab Hydrochlorothiazide (12.5 Mg Tablet) 0 each PO DAILY [facility] Last Admin: 05/23/17 09:23 Dose: 12.5 each Metformin 1,000 Mg 0 each PO BID@0700,1200 [facility] Last Admin: 05/23/17 12:08 Dose: 1 each Valsartan 160 Mg 0 each PO DAILY@2000 [facility] Last Admin: 05/22/17 22:16 Dose: Not Given Senna (Senna) 8.6 mg PO BID PRN PRN Reason: Constipation Discontinued Medications Bupivacaine HCl (Marcaine 0.25%) Confirm Administered Dose 30 ml .ROUTE .STK- MED ONE Stop: 05/22/17 06:21 Last Admin: 05/22/17 08:31 Dose: 25 ml Cefazolin Sodium (Ancef) Confirm Administered Dose 2 gm .ROUTE .STK-MED ONE Stop: 05/22/17 06:20 Cefazolin Sodium (Ancef) Confirm Administered Dose 2 gm .ROUTE .STK-MED ONE Stop: 05/22/17 06:42 Last Admin: 05/22/17 08:25 Dose: 2 gm Morphine Sulfate 8 mg/Epinephrine HCl 0.3 mg/Cefuroxime Sodium 750 mg/Ketorolac Tromethamine 30 mg/Sodium Chloride 27.9 ml 0 mg .XX ONETIME ONE Stop: 05/22/17 08:31 Last Admin: 05/22/17 08:29 Dose: 788.3 mg Ephedrine Sulfate (Ephedrine In Ns) Confirm Administered Dose 25 mg .ROUTE .STK- MED ONE Stop: 05/22/17 07:28 Ephedrine Sulfate (Ephedrine In Ns) Confirm Administered Dose 25 mg .ROUTE .STK- MED ONE Stop: 05/22/17 08:15 Fentanyl (Sublimaze) Confirm Administered Dose 100 mcg .ROUTE .STK-MED ONE Stop: 05/22/17 06:41 Fentanyl (Sublimaze) 50 mcg IVPUSH Q5M PRN PRN Reason: Pain Lactated Ringer's (Ringers, Lactated) 1,000 mls @ 125 mls/hr IV ASDIRECTED [facility] Stop: 05/22/17 23:00 Last Admin: 05/22/17 06:40 Dose: 125 mls/hr Cefazolin Sodium/Dextrose 2 gm (/ Premix) 50 mls @ 100 mls/hr IV Q8H [facility] Stop: 05/23/17 07:29 Last Admin: 05/23/17 06:22 Dose: 100 mls/hr Lidocaine HCl (Xylocaine-Mpf 1%) Confirm Administered Dose 4 mls @ as directed .ROUTE .STK-MED ONE Stop: 05/22/17 06:41 Lactated Ringer's (Ringers, Lactated) Confirm Administered Dose 1,000 mls @ as directed .ROUTE .STK-MED ONE Stop: 05/22/17 07:19 Lactated Ringer's (Ringers, Lactated) Confirm Administered Dose 1,000 mls @ as directed .ROUTE .STK-MED ONE Stop: 05/22/17 07:19 Iodine (Iodine 2% Mild Tincture) Confirm Administered Dose 30 ml .ROUTE .STK- MED ONE Stop: 05/22/17 06:21 Last Admin: 05/22/17 08:22 Dose: 18 ml Ketorolac Tromethamine (Toradol) Confirm Administered Dose 30 mg .ROUTE .STK- MED ONE Stop: 05/22/17 09:16 Lidocaine/Sodium Bicarbonate (Buffered Lidocaine 1% In Ns 8.4%) 0.25 ml IV ONETIME PRN PRN Reason: Prior to IV Start Stop: 05/22/17 18:00 Last Admin: 05/22/17 06:39 Dose: 0.25 ml Meperidine HCl (Demerol) 12.5 mg IVPUSH ONETIME PRN PRN Reason: shivering Midazolam HCl (Versed 1 Mg/Ml) Confirm Administered Dose 2 mg .ROUTE .STK-MED ONE Stop: 05/22/17 06:42 Morphine Sulfate (Duramorph Pf) Confirm Administered Dose 1 mg .ROUTE .STK-MED ONE Stop: 05/22/17 06:50 Phenylephrine HCl (Phenylephrine In Ns 100 Mcg/Ml) Confirm Administered Dose 1 mg .ROUTE .STK-MED ONE Stop: 05/22/17 07:23 Phenylephrine HCl (Phenylephrine In Ns 100 Mcg/Ml) Confirm Administered Dose 1 mg .ROUTE .STK-MED ONE Stop: 05/22/17 08:55 Propofol (Diprivan 20 Ml) Confirm Administered Dose 400 mg .ROUTE .STK-MED ONE Stop: 05/22/17 06:41 Propofol (Diprivan 20 Ml) Confirm Administered Dose 200 mg .ROUTE .STK-MED ONE Stop: 05/22/17 06:42 Sodium Chloride (Saline Flush) 10 ml FLUSH ASDIRECTED PRN PRN Reason: Keep Vein Open Stop: 05/22/17 18:00 Tranexamic Acid (Cyklokapron) Confirm Administered Dose 1,000 mg .ROUTE .STK- MED ONE Stop: 05/22/17 06:20 Last Admin: 05/22/17 08:39 Dose: 1,000 mg Vancomycin HCl (Vancomycin) Confirm Administered Dose 1 gm .ROUTE .STK-MED ONE Stop: 05/22/17 06:20 Last Admin: 05/22/17 08:34 Dose: 1 gm - Exam Wound/Incisions: Dressing Dry and Intact General: Alert, Cooperative, No Acute Distress Lungs: Normal Respiratory Effort Extremities: Other (NVS intact for LLE. Tenderness at left calf noted. No leg erythema, excessive warmth.) - Problem List Review Problem List Initiated/Reviewed/Updated: Yes - My Orders Last 24 Hours: Active Orders 24 hr Category Date Time Status Accu Check [Blood Glucose Check, Bedside] [] Care 05/22/17 12:20 Active QIDACANDBED Ready for Discharge [] PER UNIT ROUTINE Care 05/23/17 12:20 Active VL Duplex Lwr Ext Veins Ltd Lt [US] Routine Exams 05/23/17 12:14 Ordered Aspirin [Ecotrin] Med 05/23/17 09:00 Active 325 mg PO BID Dextrose 50% in Water Med 05/22/17 12:21 Active 50 ml IVPUSH ASDIRECTED PRN Docusate Sodium [Colace] Med 05/22/17 21:00 Active 100 mg PO BID Famotidine [Pepcid] Med 05/22/17 21:00 Active 20 mg PO BID Insulin Aspart [NovoLOG] Med 05/22/17 17:00 Active See Protocol SUBCUT QIDACANDBED Levothyroxine Med 05/23/17 06:00 Active 125 mcg PO ACBREAKFAST Metoprolol Succinate [Toprol XL] Med 05/23/17 09:00 Active 25 mg PO DAILY Patient's Own Medication [Ptom] Med 05/22/17 13:45 Active 0 each PO BID@0700,1200 Patient's Own Medication [Ptom] Med 05/23/17 09:00 Active 0 each PO DAILY Patient's Own Medication [Ptom] Med 05/22/17 20:00 Active 0 each PO DAILY@2000 amLODIPine [Norvasc] Med 05/23/17 09:00 Active 10 mg PO DAILY glipiZIDE [Glucotrol] Med 05/22/17 16:00 Active 10 mg PO DAILY@1600 Medication Orders Amlodipine Besylate (Norvasc) 10 mg PO DAILY [facility] Last Admin: 05/23/17 09:22 Dose: 10 mg Aspirin (Ecotrin) 325 mg PO BID [facility] Last Admin: 05/23/17 09:21 Dose: 325 mg Bisacodyl (Dulcolax) 5 mg PO DAILY PRN PRN Reason: Constipation Cyclobenzaprine HCl (Flexeril) 10 mg PO TID PRN PRN Reason: Spasms Last Admin: 05/23/17 06:23 Dose: 10 mg Admin: 05/22/17 22:11 Dose: 10 mg Dextrose/Water (Dextrose 50% In Water) 50 ml IVPUSH ASDIRECTED PRN PRN Reason: hypoglycemia- BG <80 Diphenhydramine HCl (Benadryl) 25 mg IVPUSH Q4H PRN PRN Reason: Nausea Docusate Sodium (Colace) 100 mg PO BID [facility] Last Admin: 05/23/17 09:22 Dose: 100 mg Admin: 05/22/17 22:11 Dose: 100 mg Famotidine (Pepcid) 20 mg PO BID [facility] Last Admin: 05/23/17 09:22 Dose: 20 mg Admin: 05/22/17 22:12 Dose: 20 mg Glipizide (Glucotrol) 10 mg PO DAILY@1600 [facility] Last Admin: 05/22/17 15:41 Dose: 10 mg Insulin Aspart (Novolog) 0 unit SUBCUT QIDACANDBED [facility] PRN Reason: Protocol Last Admin: 05/23/17 12:07 Dose: 2 unit Admin: 05/23/17 06:33 Dose: Not Given Admin: 05/22/17 22:13 Dose: 1 unit Admin: 05/22/17 16:34 Dose: Not Given Levothyroxine Sodium (Levothyroxine) 125 mcg PO ACBREAKFAST [facility] Last Admin: 05/23/17 06:23 Dose: 125 mcg Magnesium Hydroxide (Milk Of Magnesia) 30 ml PO BID PRN PRN Reason: Constipation Metoprolol Succinate (Toprol Xl) 25 mg PO DAILY [facility] Last Admin: 05/23/17 09:21 Dose: 25 mg Morphine Sulfate (Morphine) 2 mg IVPUSH Q2H PRN PRN Reason: Breakthrough Pain Naloxone HCl (Narcan) 0.1 mg IVPUSH Q5M PRN PRN Reason: Oversedation Ondansetron HCl (Zofran) 4 mg IVPUSH Q6H PRN PRN Reason: Nausea/Vomiting Ondansetron HCl (Zofran) 4 mg IVPUSH ONETIME PRN PRN Reason: Nausea/Vomiting Oxycodone/Acetaminophen (Percocet 325-5 Mg) 1 - 2 tab PO Q4H PRN PRN Reason: Pain Last Admin: 05/23/17 12:18 Dose: 2 tab Admin: 05/23/17 06:23 Dose: 2 tab Admin: 05/22/17 22:11 Dose: 2 tab Hydrochlorothiazide (12.5 Mg Tablet) 0 each PO DAILY [facility] Last Admin: 05/23/17 09:23 Dose: 12.5 each Metformin 1,000 Mg 0 each PO BID@0700,1200 [facility] Last Admin: 05/23/17 12:08 Dose: 1 each Admin: 05/23/17 06:24 Dose: 1 each Admin: 05/22/17 15:40 Dose: Valsartan 160 Mg 0 each PO DAILY@2000 [facility] Last Admin: 05/22/17 22:16 Dose: Senna (Senna) 8.6 mg PO BID PRN PRN Reason: Constipation - Assessment Assessment (Free Text/Narrative):: POD#1 - left TKA - Plan Plan (Free Text/Narrative):: 1. LLE venous doppler today. If negative, may d/c to home. 2. Hgb 11.3. 3. TEDs, frequent mobility, 325mg ASA BID. 4. Outpatient P.T. The pt's case was discussed with Dr. Zhu.
--- NOTE | 2017-05-23 14:44 | US ---
Left lower extremity deep venous ultrasound: Duplex and color flow imaging was obtained of the left common femoral, superficial femoral, proximal greater saphenous, popliteal, posterior tibial and peroneal veins. Right common femoral vein was also evaluated. Findings: Elongated hypoechoic area is seen within the superficial soft tissues with adjacent surrounding edema. Findings most likely represent hematoma. This has a length of around 20 cm with thickness of 1 cm. This extends from the medial level of the knee inferiorly to the medial ankle. Normal phasic flow, augmentation and compression are seen. Impression: 1. Presumed hematoma within the superficial soft tissues extending from the medial knee to the medial ankle. 2. No evidence of deep venous thrombosis seen within the left lower extremity or within the right common femoral vein. Diagnostic code #3
--- NOTE | 2017-05-25 07:54 | PCM.OPNOTE ---
- General Post-Op/Procedure Note Date of Surgery/Procedure: 05/22/17 Operative Procedure(s): left total knee arthroplasty Pre Op Diagnosis: left knee osteoarthrosis Post-Op Diagnosis: Same Anesthesia Technique: Local, MAC, Spinal Primary Surgeon: Subhash Zhu Anesthesia Provider: Eric Menezes Wax Pumper: Gilda Talley Wax Pumper: Hyacinth Schaeffer in mLs: 20 Complications: None Condition: Good
--- NOTE | 2017-05-25 08:20 | OR ---
DATE OF OPERATION: 05/22/2017 SURGEON: Subhash Zhu MD OPERATION PERFORMED: Left total knee arthroplasty. PREOPERATIVE DIAGNOSIS: Left knee osteoarthrosis. POSTOPERATIVE DIAGNOSIS: Left knee osteoarthrosis. ANESTHESIA: Local MAC with spinal. ANESTHESIA PROVIDER: Eric Menezes CRNA. SHREDDING FLOOR EQUIPMENT OPERATOR: 1. Gilda Talley PA-C. 2. Hyacinth Schaeffer LPN. ESTIMATED BLOOD LOSS: 20 mL COMPLICATIONS: None. CONDITION: Stable. IMPLANTS: 1. Flor size 6 PS femur. 2. Flor size 6 Palms tibial base plate. 3. [place] size 6 9-mm PS X3 polyethylene. 4. [place] size 38 x 10 mm patella. DESCRIPTION OF PROCEDURE: The patient was identified in the preop holding area. Proper site was marked and identified by the surgeon. The patient was taken back to the operating theater. After adequate anesthesia, the patient's left lower extremity had a nonsterile tourniquet applied and it was then sterilely prepped and draped in the usual sterile fashion. OR timeout was performed. The patient received 2 g IV Ancef. At this time, left lower extremity was exsanguinated. Tourniquet was insufflated to 300 mmHg. Standard medial parapatellar incision was made. Medial parapatellar arthrotomy was created. Deep fibers of the MCL were raised and anterior fat pad was resected. At this time, attention was turned to the patella. Patella measured 28, it was resected to a 17 for a 38 x 10 mm patella. Drill holes were then drilled and found to be in adequate position. The drill was then drilled in the distal femur and the intramedullary distal femoral cutting guide was then placed. 10 mm was resected off the distal femur and was found to be an adequate resection. Sizing guide was placed. It was found to be a size 6 femur that was shown on the implant record at the beginning of this dictation. The drill holes were drilled for the epicondylar axis using Whitesides line and epicondyles as reference. At this time, the 4-in-1 cutting block was placed. An anterior posterior and anterior and posterior chamfer cuts were then completed. The correct size box cut was then placed and the box cut was completed and found to be an adequate resection. Attention was turned to the tibia. The posterior medial lateral retractors were placed. The extramedullary tibial guide was placed. It was placed in the old footprint of the ACL. It was aligned with the center of the ankle and 0 degrees of slope, 9 mm was then resected off the unaffected lateral side. There was found to be an acceptable reduction. At this time, posterior osteophytes were removed along with medial and lateral meniscus. A trial implant was placed with a correct sized tibia that was mentioned at the beginning of the dictation. A [place] size 6 9-mm PS X3 polyethylene was then placed. The patient's knee was brought through range of motion. The patella was tracking centrally and was stable to varus and valgus stress. Alignment was found to be roughly at 0 degrees. At this time, cement was mixed on the back table. The tibia was stamped and drilled in proper rotation. All cut surfaces were irrigated with pulse lavage irrigation with Ancef and then completely dried. Once this was completed, then the cement was ready. The universal tibial base plate was cemented in place. Next, the [place] size 6 PS femur was cemented into place and the Flor size 6 9-mm PS X3 polyethylene was placed. The patient's knee was brought into full extension. Excess cement was removed. The patella was then cemented in place at this time. Tourniquet was deflated. One liter dilute Betadine solution was irrigated through the knee along with 3 L of pulse lavage irrigation with Ancef. Periarticular injection was then completed. The patient's knee was brought through a range of motion. Once the cement had time to set up and it was found to be stable to varus valgus stress, the patella was tracking centrally with full range of motion. At this time, a #2 barbed suture was used for closure of the medial parapatellar arthrotomy. Topical tranexamic acid was placed. 2-0 Vicryl was used subcutaneously, a running 3-0 Monocryl was used subcuticularly. The patient tolerated the procedure well and was sent to the PACU in stable condition. CECI /[id number]
== END 2017-05-23 15:35 | disposition home or self-care (01) ==
LOC: JD.SDS 05:58 → JD.MS 05:59 → EDSTATUS 13:30 → JD.SDS 05-23 15:35
PROVIDERS: ATTEND Orthopaedic Surgery
DX: M17.12 Unilateral primary osteoarthritis, left knee (principal); E11.22 Type 2 diabetes mellitus with diabetic chronic kidney disease; N18.9 Chronic kidney disease, unspecified; I12.9 Hypertensive chronic kidney disease with stage 1 through stage 4 chronic kidney disease, or unspecified chronic kidney disease; I25.10 Atherosclerotic heart disease of native coronary artery without angina pectoris; E78.00 Pure hypercholesterolemia, unspecified; I25.2 Old myocardial infarction; E03.9 Hypothyroidism, unspecified; Z87.891 Personal history of nicotine dependence; Z79.899 Other long term (current) drug therapy; Z79.84 Long term (current) use of oral hypoglycemic drugs; Z79.82 Long term (current) use of aspirin; Z90.49 Acquired absence of other specified parts of digestive tract; Z98.890 Other specified postprocedural states; Z95.5 Presence of coronary angioplasty implant and graft
CPT/HCPCS: 36415; 73560-26-LT; 73560-LT; 80053; 82962; 85027; 87641; 93971-26-LT; 93971-LT; 94762; 97110-GP; 97116-GP; 97161-GP; 97165-GO; 97530-GO; 97535-GO; A9270-GY; C1713; C1776; J0171; J0690; J0697; J1815-GY; J1885; J2250; J2270; J2274; J2405; J2704; J3010; J3370; J3490; J7050; J7120

== ENCOUNTER 2018-10-08 09:24 | Day surgery (SDC) | payer MEDICARE, BC ==
[~2018-10-08 09:24] MED LIST changes: -Acetaminophen/oxyCODONE 325-5 MG Tab PO PRN; -Bisacodyl 5 MG Tab PO PRN; +Brimonidine 0.2% Ophth Soln 15 ML Bottle EYELF SCH; +Brimonidine 0.2% Ophth Soln 5 ML Bottle EYELF SCH; +Cefuroxime 10 MG/ML SYRINGE EYELF SCH; -Cyclobenzaprine 10 MG Tab PO PRN; -Ketorolac 15 MG/ML SDV IVPUSH PRN; -Lactated Ringers 1,000 ML IV SCH; +Lidocaine 1% PF 2 ML SDV INJECT SCH; -Lidocaine 1%/Sod Bicarbonate in NS 8.4% 1 ML Syringe IV PRN; -Magnesium Hydroxide 400 MG/5 ML Susp 30 ML Cup PO PRN; -Morphine 2 MG/ML Syringe IVPUSH PRN; -Morphine 8 MG, EPINEPHrine 0.3 MG, Cefuroxime 750 MG, Ketorolac 30 MG, Sodium Chloride ... ONE; -Naloxone 0.4 MG/ML SDV IVPUSH PRN; -Ondansetron 4 MG/2 ML SDV IVPUSH PRN; +Pilocarpine 4% Ophth Soln 15 ML Bot EYELF SCH; -Sennosides 8.6 MG Tab PO PRN; -Sodium Chloride 0.9% 10 ML Syringe FLUSH PRN; -diphenhydrAMINE 50 MG/ML SDV IVPUSH PRN; -oxyCODONE 5 MG Tab PO PRN
[2018-10-08] MEDS: Polymyxin B/Trimethoprim 10 ML Bottle EYELF SCH ×3 (10:15→12:10)
[2018-10-08] MEDS: Brimonidine 0.2% Ophth Soln 15 ML Bottle EYELF SCH ×2 (10:20→11:00)
[2018-10-08] MEDS: Phenylephrine 2.5% Ophth Soln 2 ML Bot EYELF SCH ×5 (10:25→11:47)
[2018-10-08] MEDS: Tropicamide 1% Ophth Soln 15 ML Bottle EYELF SCH ×4 (10:30→11:10)
--- NOTE | 2018-10-08 10:32 | PCM.PREANE ---
Preanesthetic Assessment - Anesthesia/Transfusion/Family Hx Anesthesia History: Prior Anesthesia Without Reaction Family History of Anesthesia Reaction: No Transfusion History: No Prior Transfusion(s) - Review of Systems General: No Symptoms Pulmonary: No Symptoms Cardiovascular: Other (CAD, HTN) Gastrointestinal: No Symptoms Neurological: No Symptoms Other: Reports: Diabetes, Thyroid Problems - Physical Assessment NPO Status Date: 10/07/18 NPO Status Time: 22:00 Pulse: 70 O2 Sat by Pulse Oximetry: 99 Respiratory Rate: 16 Blood Pressure: 153/71 Weight: 214 kg ASA Class: 3 Mental Status: Alert & Oriented x3 Airway Class: Mallampati = 2 Dentition: Reports: Normal Dentition, Dentures (upper) Thyro-Mental Finger Breadths: 3 Mouth Opening Finger Breadths: 3 ROM/Head Extension: Full Lungs: Clear to Auscultation, Normal Respiratory Effort Cardiovascular: Regular Rate, Regular Rhythm - Allergies Allergies/Adverse Reactions: Allergies Allergy/AdvReac Type Severity Reaction Status Date / Time No Known Allergies Allergy Verified 10/05/18 13:43 - Blood Blood Available: No Product(s) Available: None - Anesthesia Plan Beta Peter: Metoprolol Med Last Dose Date: 10/08/18 Med Last Dose Time: 08:00 - Acknowledgements Anesthesia Type Planned: MAC Pt an Appropriate Candidate for the Planned Anesthesia: Yes Alternatives and Risks of Anesthesia Discussed w Pt/Guardian: Yes Pt/Guardian Understands and Agrees with Anesthesia Plan: Yes PreAnesthesia Questionnaire HEENT History: Reports: Impaired Vision Other HEENT History: has upper denture, wears glasses Cardiovascular History: Reports: CAD, High Cholesterol, Hypertension, [place], Stents Respiratory History: Reports: None Gastrointestinal History: Reports: None Genitourinary History: Reports: None, Other (See Below) Other Genitourinary History: chronic kidney disease ENTOMOLOGY TEACHER History: Reports: None Musculoskeletal History: Reports: Arthritis, Osteoarthritis Neurological History: Reports: None Psychiatric History: Reports: None Endocrine/Metabolic History: Reports: Diabetes, Type II, Hypothyroidism Hematologic History: Reports: None Immunologic History: Reports: None Oncologic (Cancer) History: Reports: None Dermatologic History: Reports: None - Infectious Disease History Infectious Disease History: Reports: None - Past Surgical History Head Surgeries/Procedures: Reports: None HEENT Surgical History: Reports: None Cardiovascular Surgical History: Respiratory Surgical History: Reports: None GI Surgical History: Reports: Appendectomy, Cholecystectomy Female Surgical History: Reports: None Male Surgical History: Reports: None Endocrine Surgical History: Reports: None Neurological Surgical History: Reports: None Musculoskeletal Surgical History: Reports: Arthroscopic Knee, Knee Replacement Dermatological Surgical History: Reports: None - HOME MEDS Home Medications: Home Meds Hydrochlorothiazide 12.5 mg PO DAILY 03/17/17 [History] Nitroglycerin [Nitrostat] 0.4 mg SL Q5M PRN 03/17/17 [History] Rosuvastatin Calcium 10 mg PO MOWEFR 03/17/17 [History] amLODIPine [Norvasc] 10 mg PO DAILY 03/17/17 [History] glipiZIDE [Glucotrol] 10 mg PO DAILY 03/17/17 [History] metFORMIN HCl [Metformin ER Osmotic] 1,000 mg PO BID 03/17/17 [History] Levothyroxine Sodium [Euthyrox] 112 mcg PO DAILY 10/05/18 [History] Losartan [Cozaar] 50 mg PO DAILY 10/05/18 [History] Metoprolol Succinate [Kapspargo Sprinkle] 50 mg PO DAILY 10/05/18 [History] - CURRENT (IN HOUSE) MEDS Current Meds: Current Medications Brimonidine Tartrate (Brimonidine Tartrate 0.2% Ophth Soln) 0 ml EYELF ASDIRECTED [facility] Stop: 10/08/18 18:00 Last Admin: 10/08/18 10:20 Dose: 1 drop Cefuroxime Sodium (Zinacef) 0 mg EYELF ASDIRECTED [facility] Stop: 10/08/18 18:00 Lidocaine HCl (Xylocaine-Mpf 1%) 0 ml INJECT ASDIRECTED [facility] Stop: 10/08/18 18:00 Phenylephrine HCl (Gordo-Synephrine 2.5% Ophth Soln) 0 ml EYELF ASDIRECTED [facility] Stop: 10/08/18 18:00 Last Admin: 10/08/18 10:25 Dose: 1 drop Pilocarpine HCl (Pilocar 4% Ophth Soln) 0 ml EYELF ASDIRECTED [facility] Stop: 10/08/18 18:00 Polymyxin/Trimethoprim Sulfate (Polytrim Ophth Soln) 0 ml EYELF ASDIRECTED [facility] Stop: 10/08/18 18:00 Last Admin: 10/08/18 10:15 Dose: 1 drop Tetracaine HCl (Tetracaine 0.5% Steri-Unit Génesis) 0 ml EYELF ASDIRECTED [facility] Stop: 10/08/18 18:00 Tropicamide (Mydriacyl 1% Ophth Soln) 0 ml EYELF ASDIRECTED [facility] Stop: 10/08/18 18:00 Discontinued Medications Brimonidine Tartrate (Alphagan 0.2% Ophth Soln) 0 ml EYELF ASDIRECTED [facility] Stop: 10/08/18 18:00 Brimonidine Tartrate (Brimonidine Tartrate 0.2% Ophth Soln) 0 ml EYELF ASDIRECTED [facility]
[2018-10-08] MEDS: Tetracaine HCl/PF 0.5% 4 ML Bottle EYELF SCH ×5 (11:15→11:56)
== END 2018-10-08 12:25 | disposition home or self-care (01) ==
LOC: JD.SDS 09:24
PROVIDERS: ATTEND Ophthalmology
DX: H25.813 Combined forms of age-related cataract, bilateral (principal); H16.103 Unspecified superficial keratitis, bilateral; H16.223 Keratoconjunctivitis sicca, not specified as Sjogren's, bilateral; H02.834 Dermatochalasis of left upper eyelid; H02.831 Dermatochalasis of right upper eyelid; H21.81 Floppy iris syndrome; H21.40 Pupillary membranes, unspecified eye; E11.9 Type 2 diabetes mellitus without complications; E78.00 Pure hypercholesterolemia, unspecified; I10 Essential (primary) hypertension; E03.9 Hypothyroidism, unspecified; I25.10 Atherosclerotic heart disease of native coronary artery without angina pectoris; Z79.84 Long term (current) use of oral hypoglycemic drugs; Z79.899 Other long term (current) drug therapy
CPT/HCPCS: 66982; J0697; J2001